=== PATIENT | female | born 1985 | race Two or more races ===

== ENCOUNTER 2017-04-09 12:51 | Emergency (ER) | payer SELFPAY ==
[~2017-04-09] VITALS: Ht 160 cm; Wt 76.2 kg
[~2017-04-09 12:51] MED LIST: ACET-704 PO; FEXO1TAB31 PO; FLUT1DIS3 IH; IBUP-1060 PO; PNV1TABL25 PO; PROAIR HFA8.5 GM IH
[2017-04-09] MEDS ORDERED: IPRATRPIUM/ALBUTEROL 0.5/2.5MG 3 ML NEBU. NEB ONE (13:15)
[2017-04-09] MEDS ORDERED: predniSONE 10 MG TABLET PO ONE (13:15)
[2017-04-09] MEDS ORDERED: ALBUTEROL SULFATE 2.5 MG/3 ML NEBU. INH ONE (13:15)
[2017-04-09] MEDS ORDERED: IV NORMAL SALINE 1000ML BAG 1,000 ML IV ONE ×2 (14:15→16:45)
[2017-04-09] MEDS ORDERED: ALBUTEROL SULFATE 2.5 MG/3 ML NEBU. CONT NEB ONE (14:30)
--- NOTE | 2017-04-09 14:41 | RAD ---
Exam performed: 2 views of the chest. Indication: Shortness of breath Date of Service:04/09/2017 4:03 PM . Comparison : Delay chest from 07/31/11. Findings: PA and lateral radiographs of the chest reveal a normal cardiomediastinal contour. The lungs are clear. No pleural fluid is seen. The visualized osseous structures are unremarkable. Impression: Radiographically normal chest.
[2017-04-09 14:42] LABS: BASO # 0.1 x10^3/uL (0.0-0.2); BASO % 1 % (0-3); EOS % 1 % (0-3); HEMATOCRIT 46.4 % (36.0-47.0); HEMOGLOBIN 15.7 g/dL (12.0-15.5); LYMPH # 1.6 x10^3/uL (1.0-4.8); LYMPH % 9 % (24-48); MEAN CORPUSCULAR HEMOGLOBIN 28 pg (25-35); MEAN CORPUSCULAR HGB CONC 34 g/dL (31-37); MEAN CORPUSCULAR VOLUME 83 fL (79-100); MONO % 5 % (0-9); NEUT % 85 % (31-73); PLATELET COUNT 330 x10^3/uL (140-400); RED BLOOD COUNT 5.62 x10^6/uL (3.50-5.40); RED CELL DISTRIBUTION WIDTH 13.1 % (11.5-14.5); WHITE BLOOD COUNT 17.6 x10^3/uL (4.0-11.0)
[2017-04-09 15:01] LABS: CALCIUM 8.5 mg/dL (8.5-10.1); CREATININE 0.8 mg/dL (0.6-1.0); GFR 82.1; POTASSIUM 3.5 mmol/L (3.5-5.1)
[2017-04-09 15:07] LABS: ALBUMIN 3.6 g/dL (3.4-5.0); ALBUMIN/GLOBULIN RATIO 0.9 (1.0-1.7); TOTAL BILIRUBIN 0.2 mg/dL (0.2-1.0); TOTAL PROTEIN 7.7 g/dL (6.4-8.2)
--- NOTE | 2017-04-09 15:26 | EKG ---
[facility] [address] [place] [address] Test Date: 2017-04-09 Test Time: 14:39:08 Pat Name: MADALYN WEINBERG Department: Room: Gender: F Credit Assistant: : 1985 Requested By: RENATE SOL Order Number: [id number] Reading MD: Simin Orlando Measurements Intervals [place] Rate: 122 P: -90 MN: 98 QRS: 54 QRSD: 92 T: 31 QT: 320 QTc: 457 Interpretive Statements SINUS TACHYCARDIA OTHERWISE NORMAL ECG Electronically Signed On 04-09-2017 19:09:50 CDT by Simin Orlando
[2017-04-09 16:26] LABS: % BASOS 1 % (0-3); % EOS 2 % (0-5)
[2017-04-09 16:28] LABS: PLT ESTIMATE ADEQUATE (ADEQUATE); TOXIC GRANULATION SLIGHT
[2017-04-09] MEDS ORDERED: PRED50TA PO (17:38)
--- NOTE | 2017-04-09 17:38 | PHYS DOC ---
Past Medical History Past Medical History: Asthma Past Surgical History: Appendectomy Alcohol Use: None Drug Use: None Adult General Chief Complaint Chief Complaint: SHORTNESS OF BREATH HPI HPI Patient is a 32 year old female who presents with shortness of breath. The patient reports asthma exacerbation since yesterday with increased dry cough & wheezing typical of her usual asthma exacerbation. She denies fevers/chills, chest pain, lower extremity pain/swelling. She has been using home inhalers without relief of symptoms. She has history of asthma, no previous hospital admissions. Denies any other known past medical history. Nonsmoker. Review of Systems Review of Systems Constitutional: Denies fever or chills Eyes: Denies change in visual acuity HENT: Denies nasal congestion or sore throat Respiratory: Reports cough and shortness of breath Cardiovascular: Denies chest pain or edema GI: Denies abdominal pain, nausea, vomiting Musculoskeletal: Denies back pain or joint pain Integument: Denies rash or skin lesions Neurologic: Denies headache, focal weakness or sensory changes Current Medications Current Medications Current Medications Medications (Trade) Dose Ordered Sig/Harish Start Time Stop Time Status Last Admin Dose Admin Albuterol Sulfate (Ventolin Neb Soln) 10 mg 1X ONCE 04/09/17 14:30 04/09/17 14:31 DC 04/09/17 14:53 10 MG Albuterol/ Ipratropium (Duoneb) 3 ml 1X ONCE 04/09/17 13:15 04/09/17 13:16 DC 04/09/17 13:22 3 ML Prednisone (Prednisone) 50 mg 1X ONCE 04/09/17 13:15 04/09/17 13:16 DC 04/09/17 13:28 50 MG Sodium Chloride 1,000 ml @ 1,000 mls/hr 1X ONCE 04/09/17 16:45 04/09/17 17:44 DC 04/09/17 16:45 1,000 MLS/HR Allergies Allergies Allergies Coded Allergies Type Severity Reaction Last Updated Verified No Known Drug Allergies 05/05/14 No Physical Exam Physical Exam Constitutional: Well developed, well nourished, mild distress HENT: Normocephalic, atraumatic, bilateral external ears normal, oropharynx moist, no tonsillar swelling or exudate, nose normal. Eyes: conjunctiva normal, no discharge. Neck: supple, no stridor. Cardiovascular: Tachycardic, regular, no murmurs, no edema. Lungs & Thorax: Tight throughout, expiratory wheezing present, mild respiratory distress, no respiratory distress. Abdomen: soft, nontender, nondistended. Skin: Warm, dry, no erythema, no rash. Back: No tenderness. Extremities: No tenderness, no edema. No calf tenderness or swelling Neurologic: Alert and oriented X 3, no focal deficits noted. Psychologic: Affect normal, judgement normal, mood normal. Current Patient Data Vital Signs Vital Signs Date Time Temp Pulse Resp B/P (MAP) Pulse Ox O2 Delivery O2 Flow Rate FiO2 04/09/17 17:39 115 42 115/63 (80) 99 04/09/17 13:09 Room Air 04/09/17 13:05 97.7 97.7 Lab Values Laboratory Tests Test 04/09/17 14:30 White Blood Count 17.6 x10^3/uL (4.0-11.0) H Red Blood Count 5.62 x10^6/uL (3.50-5.40) H Hemoglobin 15.7 g/dL (12.0-15.5) H Hematocrit 46.4 % (36.0-47.0) Mean Corpuscular Volume 83 fL (79-100) Mean Corpuscular Hemoglobin 28 pg (25-35) Mean Corpuscular Hemoglobin Concent 34 g/dL (31-37) Red Cell Distribution Width 13.1 % (11.5-14.5) Platelet Count 330 x10^3/uL (140-400) Neutrophils (%) (Auto) 85 % (31-73) H Lymphocytes (%) (Auto) 9 % (24-48) L Monocytes (%) (Auto) 5 % (0-9) Eosinophils (%) (Auto) 1 % (0-3) Basophils (%) (Auto) 1 % (0-3) Neutrophils # (Auto) 15.0 x10^3uL (1.8-7.7) H Lymphocytes # (Auto) 1.6 x10^3/uL (1.0-4.8) Monocytes # (Auto) 0.8 x10^3/uL (0.0-1.1) Eosinophils # (Auto) 0.2 x10^3/uL (0.0-0.7) Basophils # (Auto) 0.1 x10^3/uL (0.0-0.2) Segmented Neutrophils % 68 % (35-66) H Band Neutrophils % 21 % (0-9) H Lymphocytes % 7 % (24-48) L Monocytes % 1 % (0-10) Eosinophils % 2 % (0-5) Basophils % 1 % (0-3) Toxic Granulation Slight Platelet Estimate Adequate (ADEQUATE) Sodium Level 139 mmol/L (136-145) Potassium Level 3.5 mmol/L (3.5-5.1) Chloride Level 106 mmol/L (98-107) Carbon Dioxide Level 26 mmol/L (21-32) Anion Gap 7 (6-14) Blood Urea Nitrogen 9 mg/dL (7-20) Creatinine 0.8 mg/dL (0.6-1.0) Estimated GFR (Cockcroft-Gault) 82.1 BUN/Creatinine Ratio 11 (6-20) Glucose Level 109 mg/dL (70-99) H Calcium Level 8.5 mg/dL (8.5-10.1) Total Bilirubin 0.2 mg/dL (0.2-1.0) Aspartate Amino Transferase (AST) 17 U/L (15-37) Alanine Aminotransferase (ALT) 30 U/L (14-59) Alkaline Phosphatase 95 U/L (46-116) Total Protein 7.7 g/dL (6.4-8.2) Albumin 3.6 g/dL (3.4-5.0) Albumin/Globulin Ratio 0.9 (1.0-1.7) L Laboratory Tests 04/09/17 14:30 Laboratory Tests 04/09/17 14:30 EKG EKG interpreted by me: sinus tachycardia rate 122, no acute St/T wave changes, normal intervals, no ectopy.[] Radiology/Procedures Radiology/Procedures PROCEDURE: CHEST PA & LATERAL Exam performed: 2 views of the chest. Indication: Shortness of breath Date of Service:04/09/2017 4:03 PM . Comparison : Delay chest from 07/31/11. Findings: PA and lateral radiographs of the chest reveal a normal cardiomediastinal contour. The lungs are clear. No pleural fluid is seen. The visualized osseous structures are unremarkable. Impression: Radiographically normal chest. DICTATED and SIGNED BY: KRYSTYNA CHRISTINA MD DATE: 04/09/17 1437 [] Course & Med Decision Making Course & Med Decision Making Pertinent Labs and Imaging studies reviewed. (See chart for details) The patient presents with asthma exacerbation. Administered prednisone and breathing treatments. Her breathing significantly improved but she had some persistent wheezing. She was also persistently tachycardic into the 130s. Gave IV fluids, obtained labs and chest x-ray. Administered hour-long albuterol treatment. She felt much improved after completing continuous albuterol and requested discharge home. Breath sounds were clear and she was resting comfortably. However she was still tachycardic into the 130s. Likely iatrogenic from administration of large amount of albuterol, but persistently tachycardic with prolonged period of observation. Very low suspicion for PE as symptoms improved with treatment of asthma and no significant risk factors. Provided second liter of IV fluids. Heart rate improving to 110 and she had no persistent symptoms. She was not febrile, no evidence of pneumonia on chest x- ray. The patient was comfortable with discharge home. Recommend rest, hydration , Tylenol or ibuprofen for pain or fever, gave prednisone prescription, continue albuterol. Follow-up with primary care physician in 2-3 days. Return to the emergency department for severe shortness of breath or chest pain, or any otherwise worsening condition. Discharged home in stable and improved condition. [] Dragon Disclaimer Dragon Disclaimer This electronic medical record was generated, in whole or in part, using a voice recognition dictation system. Departure Departure Impression: Primary Impression: Asthma exacerbation Additional Impression: Tachycardia Disposition: 01 HOME, SELF-CARE Condition: STABLE Referrals: UNKNOWN PCP NAME (PCP) Leo CALVO MD Patient Instructions: Asthma, Adult, [id number] Additional Instructions: You were seen in the emergency department today for asthma exacerbation. You improved with breathing treatments. Your x-ray did not show pneumonia. Please rest, drink fluids, take tylenol or ibuprofen for pain or fever, use prednisone as prescribed, continue using inhalers. Come back for severe shortness of breath or chest pain, or any otherwise worsening condition. Scripts Prednisone (PREDNISONE) 50 Mg Tablet 1 TAB PO DAILY, #5 TAB Prov: RENATE SOL MD 04/09/17 Problem Qualifiers RENATE SOL MD Apr 09, 2017 17:38
[2017-04-09 17:39] VITALS: BP 115/63
== END 2017-04-09 17:49 | disposition home or self-care (01) ==
LOC: ER 12:51
DX: J45.901 Unspecified asthma with (acute) exacerbation (principal); R00.0 Tachycardia, unspecified
CPT/HCPCS: 36415; 71020; 80053; 85007; 85025; 93005; 94644; 96360; 96361; 99285; J7030; J7512; J7613; J7620; 94640

== ENCOUNTER 2017-11-25 23:37 | Emergency (ER) | payer SELFPAY ==
[2017-11-26 00:03] LABS: BILIRUBIN,URINE NEGATIVE (NEG); CLARITY,URINE CLEAR; GLUCOSE,URINE NEGATIVE (NEG); NITRITE,URINE NEGATIVE (NEG); PROTEIN,URINE NEGATIVE (NEG-TRACE); UROBILINOGEN,URINE 0.2 mg/dL (0.2 mg/dL)
[2017-11-26 00:04] LABS: URINE HCG POC HCG NEGATIVE (Negative)
[2017-11-26] MEDS: IV NORMAL SALINE 1000ML BAG 1,000 ML IV (00:15)
[2017-11-26 00:20] LABS: COLOR,URINE COLORLESS
[2017-11-26 00:22] LABS: RBC,URINE OCC /HPF (0-2)
[2017-11-26 00:23] LABS: BACTERIA,URINE FEW /HPF (0-FEW); SQUAMOUS EPITHELIAL CELL,UR FEW /LPF
[2017-11-26 00:50] LABS: ADD MAN DIFF? NO
[2017-11-26 00:53] LABS: BASO # 0.2 x10^3/uL (0.0-0.2); BASO % 1 % (0-3); EOS # 0.5 x10^3/uL (0.0-0.7); EOS % 3 % (0-3); HEMATOCRIT 45.9 % (36.0-47.0); HEMOGLOBIN 15.5 g/dL (12.0-15.5); LYMPH % 22 % (24-48); MEAN CORPUSCULAR HEMOGLOBIN 29 pg (25-35); MEAN CORPUSCULAR HGB CONC 34 g/dL (31-37); MEAN CORPUSCULAR VOLUME 84 fL (79-100); MONO # 0.7 x10^3/uL (0.0-1.1); MONO % 5 % (0-9); NEUT # 9.7 x10^3uL (1.8-7.7); NEUT % 69 % (31-73); PLATELET COUNT 369 x10^3/uL (140-400); RED BLOOD COUNT 5.45 x10^6/uL (3.50-5.40); RED CELL DISTRIBUTION WIDTH 13.1 % (11.5-14.5); WHITE BLOOD COUNT 14.1 x10^3/uL (4.0-11.0)
[2017-11-26 01:04] LABS: ANION GAP 11 (6-14); BLOOD UREA NITROGEN 12 mg/dL (7-20); BUN/CREATININE RATIO 13 (6-20); CALCIUM 8.8 mg/dL (8.5-10.1); CARBON DIOXIDE 22 mmol/L (21-32); CHLORIDE 109 mmol/L (98-107); CREATININE 0.9 mg/dL (0.6-1.0); GFR 71.7; GLUCOSE 99 mg/dL (70-99); POTASSIUM 3.7 mmol/L (3.5-5.1); SODIUM 142 mmol/L (136-145)
[2017-11-26 01:10] LABS: ALBUMIN 3.5 g/dL (3.4-5.0); ALBUMIN/GLOBULIN RATIO 0.9 (1.0-1.7); ALK PHOS 107 U/L (46-116); ALT (SGPT) 25 U/L (14-59); AST (SGOT) 14 U/L (15-37); CREATINE KINASE 67 U/L (26-192); TOTAL BILIRUBIN 0.2 mg/dL (0.2-1.0); TOTAL PROTEIN 7.6 g/dL (6.4-8.2)
[2017-11-26 01:11] LABS: D-DIMER < 0.27 ug/mlFEU (0.00-0.50)
== END 2017-11-26 02:46 | disposition home or self-care (01) ==
LOC: ER 23:37
DX: R07.9 Chest pain, unspecified (principal); J45.909 Unspecified asthma, uncomplicated; R11.0 Nausea; Z79.899 Other long term (current) drug therapy; Z90.49 Acquired absence of other specified parts of digestive tract
CPT/HCPCS: 36415; 71045; 80053; 81001; 81025; 82550; 85025; 85379; 87086; 93005; 99285; J7030

== ENCOUNTER 2018-09-05 22:29 | Emergency (ER) | payer SELFPAY ==
[~2018-09-05] VITALS: Ht 160 cm; Wt 77.1 kg
[2018-09-05 22:29] VITALS: BP 135/76
[~2018-09-05 22:29] MED LIST changes: +ALBU2.5V8 IH; +PRED50TA PO; -PROAIR HFA8.5 GM IH
--- NOTE | 2018-09-05 22:59 | PHYS DOC ---
Past Medical History Past Medical History: Asthma (ASIA LEAVITT) Past Surgical History: Appendectomy (ASIA LEAVITT) Alcohol Use: None Drug Use: None (ASIA LEAVITT) Adult General Chief Complaint Chief Complaint: ASTHMA HPI HPI Patient is a 33 -year-old female with a history of asthma presents to the ED complaining of cough around 1:00 today. States she had to use her inhaler 4 times in the last couple of hours. Associated symptoms include sore throat. Denies chest pain, weakness, rash, nausea/vomiting, palpitations, back pain, neck pain, vision changes, fever or dizziness. (ASIA LEAVITT) Review of Systems Review of Systems Constitutional: Denies fever or chills [] Eyes: Denies change in visual acuity, redness, or eye pain [] HENT: Complains of sore throat. Denies nasal congestion. [] Respiratory: Complains of cough and shortness of breath. Cardiovascular: No additional information not addressed in HPI [] GI: Denies abdominal pain, nausea, vomiting, bloody stools or diarrhea [] : Denies dysuria or hematuria [] Musculoskeletal: Denies back pain or joint pain [] Integument: Denies rash or skin lesions [] Neurologic: Denies headache, focal weakness or sensory changes [] All other systems were reviewed and found to be within normal limits, except as documented in this note. (ASIA LEAVITT) Current Medications Current Medications Current Medications Medications (Trade) Dose Ordered Sig/Harish Start Time Stop Time Status Last Admin Dose Admin Albuterol/ Ipratropium (Duoneb) 3 ml 1X ONCE 09/05/18 23:00 09/05/18 23:01 DC 09/05/18 23:50 3 ML Methylprednisolone Sodium Succinate (SOLU-Medrol 125MG VIAL) 125 mg 1X ONCE 09/05/18 23:00 09/05/18 23:01 DC 09/05/18 23:46 125 MG (REJI KAPOOR MD) Allergies Allergies Allergies Coded Allergies Type Severity Reaction Last Updated Verified No Known Drug Allergies 05/05/14 No (REJI KAPOOR MD) Physical Exam Physical Exam Constitutional: Well developed, well nourished, no acute distress, non-toxic appearance. [] HENT: Normocephalic, atraumatic, bilateral external ears normal, oropharynx moist, no oral exudates, nose normal. [] Eyes: PERRLA, EOMI, conjunctiva normal, no discharge. [] Neck: Normal range of motion, no tenderness, supple, no stridor. [] Cardiovascular:Tachycardic, Normal rhythm, no murmur [] Lungs & Thorax: Mild wheezing bilaterally. Abdomen: Bowel sounds normal, soft, no tenderness, no masses, no pulsatile masses. [] Skin: Warm, dry, no erythema, no rash. [] Back: No tenderness, no CVA tenderness. [] Extremities: No tenderness, no cyanosis, no clubbing, ROM intact, no edema. [] Neurologic: Alert and oriented X 3, normal motor function, normal sensory function, no focal deficits noted. [] Psychologic: Affect normal, judgement normal, mood normal. [] (ASIA LEAVITT) Current Patient Data Vital Signs Vital Signs Date Time Temp Pulse Resp B/P (MAP) Pulse Ox O2 Delivery O2 Flow Rate FiO2 09/05/18 23:50 96 09/05/18 22:29 97.9 120 20 135/76 (95) Room Air 97.9 (REJI KAPOOR MD) EKG EKG [] (ASIA LEAVITT) Radiology/Procedures Radiology/Procedures [] (ASIA LEAVITT) Course & Med Decision Making Course & Med Decision Making Pertinent Labs and Imaging studies reviewed. (See chart for details) []Patient improved after breathing treatment. On re-examination, patient is not tachycardic, not tachypneic and O2 saturation is 98%. Patient states she is feeling much better. Will treat with short course of prednisone outpatient. Patient has an inhaler at home. Discussed follow-up with PCP this week. Provided contact information/education. Discussed reasons to return to the ED. Patient understands and agrees with plan. Family at bedside. (ASIA LEAVITT) Course & Med Decision Making Staff Physician Addendum: I was working in the ER during the course of this patient's visit. I was available for consultation as needed, but I was not directly involved in the care of this patient. (REJI KAPOOR MD) Dragon Disclaimer Dragon Disclaimer This electronic medical record was generated, in whole or in part, using a voice recognition dictation system. (ASIA LEAVITT) Departure Departure Impression: Primary Impression: Asthma exacerbation Disposition: 01 HOME, SELF-CARE Condition: IMPROVED Referrals: SANDEEP ONEIL (PCP) Patient Instructions: Asthma, Adult Scripts Prednisone (PREDNISONE) 20 Mg Tablet 2 TAB PO DAILY for 5 Days, #10 TAB Prov: ASIA LEAVITT 09/06/18 ASIA LEAVITT Sep 05, 2018 22:59 REJI KAPOOR MD Sep 07, 2018 05:31
[2018-09-05] MEDS ORDERED: IPRATRPIUM/ALBUTEROL 0.5/2.5MG 3 ML NEBU. NEB ONE ×2 (23:00)
[2018-09-05] MEDS ORDERED: methylPREDNISolone SOD SUCC PF 125 MG/2 ML VIAL. IM ONE (23:00)
[2018-09-06] MEDS ORDERED: PRED20TA PO (00:07)
[2018-09-07] MEDS ORDERED: D-ME118S2 PO (07:55)
[2018-09-07] MEDS ORDERED: ATROVENT HFA12.9 GM IH (07:55)
== END 2018-09-06 00:22 | disposition home or self-care (01) ==
LOC: ER 22:29
DX: J45.901 Unspecified asthma with (acute) exacerbation (principal); R00.0 Tachycardia, unspecified; Z90.89 Acquired absence of other organs
CPT/HCPCS: 94640; 96372; 99283; J2930; J7620

== ENCOUNTER 2018-09-07 06:52 | Emergency (ER) | payer SELFPAY ==
[~2018-09-07] VITALS: Ht 160 cm; Wt 77.1 kg
[~2018-09-07 06:52] MED LIST changes: +PRED20TA PO
[2018-09-07 07:09] VITALS: BP 115/77
[2018-09-07] MEDS ORDERED: IPRATRPIUM/ALBUTEROL 0.5/2.5MG 3 ML NEBU. NEB ONE (07:15)
--- NOTE | 2018-09-07 07:17 | PHYS DOC ---
Past Medical History Past Medical History: Asthma Past Surgical History: Appendectomy Alcohol Use: None Drug Use: None Adult General Chief Complaint Chief Complaint: ASTHMA HPI HPI Patient is a 33 year old female who presents with cough and congestion. She reports difficulty breathing. She was seen and diagnosed with an asthma exacerbation 2 days ago. Reports that the inhalers not working. Increased with coughing. She has not seen her primary care physician for follow-up at this time. Denies any fever. Denies any leg swelling. Reports minimal improvement with her metered-dose inhaler.[] Review of Systems Review of Systems Constitutional: Denies fever or chills [] Eyes: Denies change in visual acuity, redness, or eye pain [] HENT: Denies sore throat, see history of present illness [] Respiratory: See history of present illness[] Cardiovascular: No chest pain or palpitations[] GI: Denies abdominal pain, nausea, vomiting, bloody stools or diarrhea [] : Denies dysuria or hematuria [] Musculoskeletal: Denies back pain or joint pain [] Integument: Denies rash or skin lesions [] Neurologic: Denies headache, focal weakness or sensory changes [] Endocrine: Denies polyuria or polydipsia [] All other systems were reviewed and found to be within normal limits, except as documented in this note. Current Medications Current Medications Current Medications Medications (Trade) Dose Ordered Sig/Harish Start Time Stop Time Status Last Admin Dose Admin Albuterol/ Ipratropium (Duoneb) 3 ml 1X ONCE 09/07/18 07:15 09/07/18 07:16 DC 09/07/18 07:29 3 ML Allergies Allergies Allergies Coded Allergies Type Severity Reaction Last Updated Verified No Known Drug Allergies 05/05/14 No Physical Exam Physical Exam Constitutional: Well developed, well nourished, no acute distress, non-toxic appearance. [] HENT: Normocephalic, atraumatic, bilateral external ears normal, oropharynx moist, no oral exudates, nose with clear rhinorrhea, posterior oral pharyngeal streaking. [] Eyes: PERRLA, EOMI, conjunctiva normal, no discharge. [] Neck: Normal range of motion, no tenderness, supple, no stridor. [] Cardiovascular:Heart rate regular rhythm, no murmur [] Lungs & Thorax: Scattered expiratory wheezes[] Abdomen: Bowel sounds normal, soft, no tenderness, no masses, no pulsatile masses. [] Skin: Warm, dry, no erythema, no rash. [] Back: No tenderness, no CVA tenderness. [] Extremities: No tenderness, no cyanosis, no clubbing, ROM intact, no edema. [] Neurologic: Alert and oriented X 3, normal motor function, normal sensory function, no focal deficits noted. [] Psychologic: Affect normal, judgement normal, mood normal. [] Current Patient Data Vital Signs Vital Signs Date Time Temp Pulse Resp B/P (MAP) Pulse Ox O2 Delivery O2 Flow Rate FiO2 09/07/18 07:31 Room Air 09/07/18 07:09 97.9 117 24 115/77 (90) 96 97.9 EKG EKG [] Radiology/Procedures Radiology/Procedures [] Course & Med Decision Making Course & Med Decision Making Pertinent Labs and Imaging studies reviewed. (See chart for details) ED course and medical decision making: Patient appears to have an upper respiratory infection triggering asthma exacerbation. Her oxygen saturation was 96% at the start, prior to any breathing treatments. She received a DuoNeb which cleared her lung sounds and her oxygen saturation was 98% after the breathing treatment. Will add ipratropium to her regimen along with cough and congestion medicine.[] Dragon Disclaimer Dragon Disclaimer This electronic medical record was generated, in whole or in part, using a voice recognition dictation system. Departure Departure Impression: Primary Impression: Asthma exacerbation Additional Impression: Upper respiratory infection Disposition: 01 HOME, SELF-CARE Condition: IMPROVED Referrals: SANDEEP ONEIL (PCP) Follow-up in 2 days Patient Instructions: Asthma Attacks, Prevention, Asthma, Adult, Upper Respiratory Infection, Adult Additional Instructions: Drink plenty of fluids. Follow-up with your regular doctor in 2 days. Return to the ER if worsening difficulty breathing or any other concerns. Scripts D-Methorphan Hb/Prometh Hcl (PROMETHAZINE-DM SYRUP) 118 Ml Syrup 5 ML PO PRN Q4HRS, #120 ML Prov: BARBRA GUZMAN DO 09/07/18 Ipratropium [place] (ATROVENT HFA) 12.9 Gm Hfa.aer.ad 12.9 GM IH Q6HRS, #1 INHALER Prov: BARBRA GUZMAN DO 09/07/18 Problem Qualifiers Primary Impression: Asthma exacerbation Asthma severity: unspecified severity Asthma persistence: intermittent Qualified Codes: J45.21 - Mild intermittent asthma with (acute) exacerbation Additional Impression: Upper respiratory infection URI type: unspecified URI Qualified Codes: J06.9 - Acute upper respiratory infection, unspecified BARBRA GUZMAN DO Sep 07, 2018 07:17
[2018-09-07] MEDS ORDERED: ATROVENT HFA12.9 GM IH (07:55)
[2018-09-07] MEDS ORDERED: D-ME118S2 PO (07:55)
== END 2018-09-07 08:07 | disposition home or self-care (01) ==
LOC: ER 06:52
DX: J45.21 Mild intermittent asthma with (acute) exacerbation (principal); Z90.89 Acquired absence of other organs
CPT/HCPCS: 94640; 99283; J7620

== ENCOUNTER 2019-04-03 08:57 | Emergency (ER) | payer SELFPAY ==
[~2019-04-03] VITALS: Ht 160 cm; Wt 74.8 kg
[~2019-04-03 08:57] MED LIST changes: +ATROVENT HFA12.9 GM IH; +AZIT250T6 PO; +BENZ100C PO; +CETI10TA22 PO; +METH4TAB2 PO; +PROM118S9 PO; +PROVENTIL HFA6.7 G2 INH
[2019-04-03 09:03] VITALS: BP 140/79
[2019-04-03] MEDS ORDERED: methylPREDNISolone SOD SUCC PF 125 MG/2 ML VIAL. IM ONE (09:30)
[2019-04-03] MEDS ORDERED: IPRATRPIUM/ALBUTEROL 0.5/2.5MG 3 ML NEBU. NEB ONE (09:30)
--- NOTE | 2019-04-03 09:30 | PHYS DOC ---
Past Medical History Past Medical History: Asthma Past Surgical History: Appendectomy Alcohol Use: None Drug Use: None Adult General Chief Complaint Chief Complaint: ASTHMA HPI HPI Patient is a 34 year old female that presents with cough and shortness of breath is ongoing since last night around 9:00 PM. Patient states she's having 3 out of 10 pain when she takes a deep breath. She states that she has a history of asthma has been using an inhaler at home that is not working. Review of Systems Review of Systems Constitutional: Denies fever or chills [] Eyes: Denies change in visual acuity, redness, or eye pain [] HENT: Reports nasal congestion or sore throat [] Respiratory: Reports cough or shortness of breath [] Cardiovascular: No additional information not addressed in HPI [] GI: Denies abdominal pain, nausea, vomiting, bloody stools or diarrhea [] : Denies dysuria or hematuria [] Musculoskeletal: Denies back pain or joint pain [] Integument: Denies rash or skin lesions [] Neurologic: Denies headache, focal weakness or sensory changes [] Endocrine: Denies polyuria or polydipsia [] Complete systems were reviewed and found to be within normal limits, except as documented in this note. Current Medications Current Medications Current Medications Medications (Trade) Dose Ordered Sig/Harish Start Time Stop Time Status Last Admin Dose Admin Albuterol Sulfate (Ventolin Neb Soln) 10 mg 1X STAT 04/03/19 10:15 04/03/19 10:17 DC 04/03/19 10:27 10 MG Albuterol/ Ipratropium (Duoneb) 3 ml 1X ONCE 04/03/19 09:30 04/03/19 09:31 DC 04/03/19 09:34 3 ML Methylprednisolone Sodium Succinate (SOLU-Medrol 125MG VIAL) 125 mg 1X ONCE 04/03/19 09:30 04/03/19 09:31 DC 04/03/19 09:39 125 MG Allergies Allergies Allergies Coded Allergies Type Severity Reaction Last Updated Verified No Known Drug Allergies 05/05/14 No Physical Exam Physical Exam Constitutional: Well developed, well nourished, no acute distress, non-toxic appearance. [] HENT: Normocephalic, atraumatic, bilateral external ears normal, oropharynx moist, no oral exudates, nose normal. [] Eyes: PERRLA, EOMI, conjunctiva normal, no discharge. [] Neck: Normal range of motion, no tenderness, supple, no stridor. [] Cardiovascular:Heart rate regular rhythm, no murmur [] Lungs & Thorax: Bilateral breath sounds have wheezing diffusely. Abdomen: Bowel sounds normal, soft, no tenderness, no masses, no pulsatile masses. [] Skin: Warm, dry, no erythema, no rash. [] Back: No tenderness, no CVA tenderness. [] Extremities: No tenderness, no cyanosis, no clubbing, ROM intact, no edema. [] Neurologic: Alert and oriented X 3, normal motor function, normal sensory function, no focal deficits noted. [] Psychologic: Affect normal, judgement normal, mood normal. [] Current Patient Data Vital Signs Vital Signs Date Time Temp Pulse Resp B/P (MAP) Pulse Ox O2 Delivery O2 Flow Rate FiO2 04/03/19 10:33 Room Air 04/03/19 09:03 97.8 130 30 140/79 (99) 93 97.8 EKG EKG [] Radiology/Procedures Radiology/Procedures [] Course & Med Decision Making Course & Med Decision Making Pertinent Labs and Imaging studies reviewed. (See chart for details) Patient appears to be having an asthma attack, will give steroids and breathing treatment. After initial duoneb, patient is still feeling better but is still wheezing. Will order hour long continuous nebulizer. After hour long patient has improved. Will d/c home. Dragon Disclaimer Dragon Disclaimer This electronic medical record was generated, in whole or in part, using a voice recognition dictation system. Departure Departure Impression: Primary Impression: Asthma exacerbation Disposition: HOME, SELF-CARE Condition: STABLE Referrals: NO PCP (PCP) Patient Instructions: Asthma Attacks, Prevention, Asthma, Adult Additional Instructions: Thank you for visiting [facility]. We appreciate you trusting us with your care. If any additional problems come up don't hesitate to return to visit us. Please follow up with your primary care provider so they can plan additional care if needed and know about the problem that you had. If symptoms worsen come back to the Emergency Department. Any concerning symptoms that start such as chest pain, shortness of air, weakness or numbness on one side of the body, running high fevers or any other concerning symptoms return to the ER. Please follow up with primary care doctor regarding your asthma. Scripts Prednisone (PREDNISONE) 20 Mg Tablet 1 TAB PO BID for 5 Days, #10 TAB Prov: BRENDA COATS APRN 04/03/19 Problem Qualifiers Primary Impression: Asthma exacerbation Asthma severity: moderate Asthma persistence: unspecified Qualified Codes: J45.901 - Unspecified asthma with (acute) exacerbation BRENDA COATS APRN Apr 03, 2019 09:30
[2019-04-03] MEDS ORDERED: ALBUTEROL SULFATE 2.5 MG/3 ML NEBU. CONT NEB STA (10:15)
[2019-04-03] MEDS ORDERED: PRED20TA PO (11:30)
== END 2019-04-03 11:42 | disposition home or self-care (01) ==
LOC: ER 08:57
DX: J45.901 Unspecified asthma with (acute) exacerbation (principal)
CPT/HCPCS: 94640; 94644; 99285; J2930; J7613; J7620

== ENCOUNTER 2019-04-18 18:50 | Observation (INO) | payer SELFPAY ==
[~2019-04-18] VITALS: Ht 160 cm; Wt 73.0 kg
[2019-04-18] MEDS ORDERED: TERBUTALINE 1 MG/ML VIAL. SQ ONE (19:00)
[2019-04-18] MEDS ORDERED: MAGNESIUM SULFATE 2GM 50 ML IV ONE (19:00)
[2019-04-18] MEDS ORDERED: IPRATRPIUM/ALBUTEROL 0.5/2.5MG 3 ML NEBU. NEB ONE ×3 (19:15→19:30)
[2019-04-18] MEDS ORDERED: methylPREDNISolone SOD SUCC PF 125 MG/2 ML VIAL. IV ONE (19:15)
--- NOTE | 2019-04-18 19:18 | PHYS DOC ---
Past Medical History Past Medical History: Asthma Past Surgical History: Appendectomy Alcohol Use: None Drug Use: None Adult General Chief Complaint Chief Complaint: ASTHMA HPI HPI 34-year-old female presents to the emergency department with complaints of shortness of breath. Patient has underlying history of asthma states approximate 30 minutes prior to arrival she developed shortness of breath. She attended use inhalers at home however unsuccessful. She presented to the ER with respiratory rate in the 40s, speaking in 2 word sentences. She is coughing on examination, cachectic, use of accessory muscles.: Respiratory distress. Saturations 84% on initial arrival. Son is at bedside with patient providing history. Review of Systems Review of Systems Review of systems is limited secondary to patient's current condition, patient with evidence of 2 word sentences, clearly short of breath and coughing. All other systems were reviewed and found to be within normal limits, except as documented in this note. Current Medications Current Medications Current Medications Medications (Trade) Dose Ordered Sig/Harish Start Time Stop Time Status Last Admin Dose Admin Albuterol/ Ipratropium (Duoneb) 3 ml 1X ONCE 04/18/19 19:30 04/18/19 19:31 DC 04/18/19 19:26 3 ML Magnesium Sulfate 50 ml @ 25 mls/hr 1X ONCE 04/18/19 19:00 04/18/19 20:59 DC 04/18/19 19:01 25 MLS/HR Methylprednisolone Sodium Succinate (SOLU-Medrol 125MG VIAL) 125 mg 1X ONCE 04/18/19 19:15 04/18/19 19:16 DC 04/18/19 19:02 125 MG Sodium Chloride 1,000 ml @ 1,000 mls/hr 1X ONCE 04/18/19 19:45 04/18/19 20:44 DC 04/18/19 19:40 1,000 MLS/HR Terbutaline Sulfate (Brethine) 0.25 mg 1X ONCE 04/18/19 19:00 04/18/19 19:18 DC Allergies Allergies Allergies Coded Allergies Type Severity Reaction Last Updated Verified No Known Drug Allergies 05/05/14 No Physical Exam Physical Exam Constitutional: Well developed, well nourished, no acute distress, non-toxic appearance. [] HENT: Normocephalic, atraumatic, bilateral external ears normal, oropharynx moist, no oral exudates, nose normal. [] Eyes: PERRLA, EOMI, conjunctiva normal, no discharge. [] Neck: Normal range of motion, no tenderness, supple, no stridor. [] Cardiovascular:Heart rate regular rhythm, no murmur [] Lungs & Thorax: Bilateral breath sounds clear to auscultation [] Abdomen: Bowel sounds normal, soft, no tenderness, no masses, no pulsatile masses. [] Skin: Warm, dry, no erythema, no rash. [] Back: No tenderness, no CVA tenderness. [] Extremities: No tenderness, no cyanosis, no clubbing, ROM intact, no edema. [] Neurologic: Alert and oriented X 3, normal motor function, normal sensory function, no focal deficits noted. [] Psychologic: Affect normal, judgement normal, mood normal. [] Current Patient Data Vital Signs Vital Signs Date Time Temp Pulse Resp B/P (MAP) Pulse Ox O2 Delivery O2 Flow Rate FiO2 04/18/19 19:00 88 3.0 04/18/19 18:50 97.4 133 44 171/105 (127) Room Air 97.4 Lab Values Laboratory Tests Test 04/18/19 18:55 White Blood Count 19.0 x10^3/uL (4.0-11.0) H Red Blood Count 5.63 x10^6/uL (3.50-5.40) H Hemoglobin 15.1 g/dL (12.0-15.5) Hematocrit 45.7 % (36.0-47.0) Mean Corpuscular Volume 81 fL (79-100) Mean Corpuscular Hemoglobin 27 pg (25-35) Mean Corpuscular Hemoglobin Concent 33 g/dL (31-37) Red Cell Distribution Width 14.6 % (11.5-14.5) H Platelet Count 458 x10^3/uL (140-400) H Neutrophils (%) (Auto) 70 % (31-73) Lymphocytes (%) (Auto) 22 % (24-48) L Monocytes (%) (Auto) 5 % (0-9) Eosinophils (%) (Auto) 3 % (0-3) Basophils (%) (Auto) 1 % (0-3) Neutrophils # (Auto) 13.2 x10^3/uL (1.8-7.7) H Lymphocytes # (Auto) 4.2 x10^3/uL (1.0-4.8) Monocytes # (Auto) 0.9 x10^3/uL (0.0-1.1) Eosinophils # (Auto) 0.5 x10^3/uL (0.0-0.7) Basophils # (Auto) 0.1 x10^3/uL (0.0-0.2) Segmented Neutrophils % 79 % (35-66) H Band Neutrophils % 2 % (0-9) Lymphocytes % 17 % (24-48) L Monocytes % 1 % (0-10) Eosinophils % 1 % (0-5) Platelet Estimate Adequate (ADEQUATE) D-Dimer (Leanna) 0.53 ug/mlFEU (0.00-0.50) H Sodium Level 140 mmol/L (136-145) Potassium Level 3.5 mmol/L (3.5-5.1) Chloride Level 104 mmol/L (98-107) Carbon Dioxide Level 24 mmol/L (21-32) Anion Gap 12 (6-14) Blood Urea Nitrogen 7 mg/dL (7-20) Creatinine 1.0 mg/dL (0.6-1.0) Estimated GFR (Cockcroft-Gault) 62.7 BUN/Creatinine Ratio 7 (6-20) Glucose Level 109 mg/dL (70-99) H Calcium Level 8.9 mg/dL (8.5-10.1) Total Bilirubin 0.3 mg/dL (0.2-1.0) Aspartate Amino Transferase (AST) 19 U/L (15-37) Alanine Aminotransferase (ALT) 23 U/L (14-59) Alkaline Phosphatase 113 U/L (46-116) Total Protein 6.9 g/dL (6.4-8.2) Albumin 3.2 g/dL (3.4-5.0) L Albumin/Globulin Ratio 0.9 (1.0-1.7) L Laboratory Tests 04/18/19 18:55 Laboratory Tests 04/18/19 18:55 EKG EKG EKG reviewed, urgent EKG given patient's rate. Heart rate 128, sinus tachycardia.[] Interpretation Time: Interpretation time 1900 Radiology/Procedures Radiology/Procedures [] Course & Med Decision Making Course & Med Decision Making Pertinent Labs and Imaging studies reviewed. (See chart for details) []34-year-old female presents to the emergency department with complaints of shortness of breath. Patient has underlying history of asthma states approximate 30 minutes prior to arrival she developed shortness of breath. She attended use inhalers at home however unsuccessful. She presented to the ER with respiratory rate in the 40s, speaking in 2 word sentences. She is coughing on examination, cachectic, use of accessory muscles.: Respiratory distress. Saturations 84% on initial arrival. Son is at bedside with patient providing history. Upon arrival patient with severe respiratory distress speaking in 2-3 word sent ences affect, saturations 85% on room air. Patient received 125 mg of Solu- Medrol, DuoNeb 1 hour, magnesium 2 g IV over 10 minutes. Saturations slowly improved currently she is 98% on 2 L nasal cannula. Heart rate had been up to 140s to 160s now currently 120. Laboratory values revealed white blood cell count 19, chest x-ray reveals no evidence of acute consolidation. D-dimer is mildly elevated 0.53, likely incidental finding however will be complete with CTA of chest. Given significants of patient's presentation upon arrival would recommend observation overnight and continued treatments as well as steroid therapy. Discussed with patient at bedside she agrees for admission. Discussed admit with Hospitalist Jose Manuel Disclaimer Jose Manuel Disclaimer This electronic medical record was generated, in whole or in part, using a voice recognition dictation system. Departure Departure Impression: Primary Impression: Asthma exacerbation Additional Impression: Hypoxia Disposition: 09 ADMITTED INPATIENT Admitting Physician: CHARLA Condition: IMPROVED Referrals: NO PCP (PCP) Critical Care Time Critical care time was 40 minutes exclusive of procedures. Problem Qualifiers REJI LIMA MD Apr 18, 2019 19:18
[2019-04-18 19:19] LABS: BASO # 0.1 x10^3/uL (0.0-0.2); BASO % 1 % (0-3); EOS # 0.5 x10^3/uL (0.0-0.7); EOS % 3 % (0-3); HEMATOCRIT 45.7 % (36.0-47.0); HEMOGLOBIN 15.1 g/dL (12.0-15.5); LYMPH # 4.2 x10^3/uL (1.0-4.8); LYMPH % 22 % (24-48); MEAN CORPUSCULAR HEMOGLOBIN 27 pg (25-35); MEAN CORPUSCULAR HGB CONC 33 g/dL (31-37); MEAN CORPUSCULAR VOLUME 81 fL (79-100); MONO # 0.9 x10^3/uL (0.0-1.1); MONO % 5 % (0-9); NEUT # 13.2 x10^3/uL (1.8-7.7); NEUT % 70 % (31-73); PLATELET COUNT 458 x10^3/uL (140-400); RED BLOOD COUNT 5.63 x10^6/uL (3.50-5.40); RED CELL DISTRIBUTION WIDTH 14.6 % (11.5-14.5)
[2019-04-18 19:33] LABS: CALCIUM 8.9 mg/dL (8.5-10.1); GFR 62.7; POTASSIUM 3.5 mmol/L (3.5-5.1)
[2019-04-18 19:39] LABS: ALBUMIN 3.2 g/dL (3.4-5.0); ALBUMIN/GLOBULIN RATIO 0.9 (1.0-1.7); TOTAL BILIRUBIN 0.3 mg/dL (0.2-1.0); TOTAL PROTEIN 6.9 g/dL (6.4-8.2)
[2019-04-18] MEDS ORDERED: IV NORMAL SALINE 1000ML BAG 1,000 ML IV ONE (19:45)
[2019-04-18 19:55] LABS: % BANDS 2 % (0-9); % EOS 1 % (0-5); % LYMPHS 17 % (24-48); % MONOS 1 % (0-10); % SEGS 79 % (35-66); PLT ESTIMATE ADEQUATE (ADEQUATE)
[2019-04-18] MEDS ORDERED: ONDANSETRON PF 4 MG/2 ML VIAL. IV PRN (21:15)
[2019-04-18] MEDS ORDERED: ACETAMINOPHEN 325 MG TABLET. PO PRN (21:15)
[2019-04-18] MEDS ORDERED: IOHEXOL 350 MG/ML 100 ML VIAL. IV ONE (22:00)
[2019-04-18] MEDS ORDERED: CONTRAST GIVEN. MC PRN (22:00)
[2019-04-18] MEDS ORDERED: FAMOTIDINE 20 MG/2 ML VIAL IVP ONE (22:45)
[2019-04-18] MEDS ORDERED: diphenhydrAMINE 50 MG/ML VIAL IVP ONE (22:45)
--- NOTE | 2019-04-18 22:57 | RAD ---
CTA Chest with contrast: Clinical History: Shortness of breath. Axial helical images of the chest were obtained after the administration of 100 cc of IV Omni 350 and timed appropriately for a pulmonary arterial study. Conventional axial reconstruction was performed in addition to coronal, sagittal and bilateral oblique MIP (maximum intensity projection). This study was ordered to detect possible pulmonary embolism. There are no filling defects to suggest pulmonary embolism. There is patchy opacity in the left upper lobe anterior medially. There is vague patchy groundglass opacities in the left lower lobe and in the lingula and there is groundglass opacities throughout the remaining lungs. There is a moderately enlarged lymph node in the left hilum. The thoracic aorta appears normal. Impression: 1. No evidence of pulmonary embolism. 2. Bilateral infiltrates and mild left hilar lymphadenopathy. This could be secondary to atypical pneumonia including TB. Recommend follow-up chest x-ray complete resolution. PQRS Compliance Statement: One or more of the following individualized dose reduction techniques were utilized for this examination: 1. Automated exposure control 2. Adjustment of the mA and/or kV according to patient size 3. Use of iterative reconstruction technique Electronically signed by: Kermit Lacy III, MD (04/18/2019 10:54 PM) [facility]
[2019-04-18 23:47] VITALS: BP 126/78
--- NOTE | 2019-04-19 01:51 | RAD ---
Chest AP portable at 1854: Reason for examination: Short of breath. Asthma. The heart size is normal. Mediastinum is unremarkable. Lung luong are clear. No acute bony abnormalities are seen. Impression: No acute cardiopulmonary disease. Electronically signed by: Estefani Trevino MD (04/19/2019 1:49 AM) [facility]
[2019-04-19 03:07] VITALS: BP 110/69
[2019-04-19 05:15] LABS: BASO % 0 % (0-3); EOS % 0 % (0-3); HEMATOCRIT 41.8 % (36.0-47.0); HEMOGLOBIN 14.1 g/dL (12.0-15.5); LYMPH # 0.6 x10^3/uL (1.0-4.8); LYMPH % 4 % (24-48); MEAN CORPUSCULAR HEMOGLOBIN 27 pg (25-35); MEAN CORPUSCULAR HGB CONC 34 g/dL (31-37); MEAN CORPUSCULAR VOLUME 80 fL (79-100); MONO # 0.1 x10^3/uL (0.0-1.1); MONO % 1 % (0-9); NEUT # 16.2 x10^3/uL (1.8-7.7); NEUT % 95 % (31-73); PLATELET COUNT 377 x10^3/uL (140-400); RED CELL DISTRIBUTION WIDTH 14.8 % (11.5-14.5)
[2019-04-19 05:22] LABS: ALBUMIN 2.9 g/dL (3.4-5.0); ALBUMIN/GLOBULIN RATIO 0.8 (1.0-1.7); CALCIUM 8.5 mg/dL (8.5-10.1); CREATININE 1.1 mg/dL (0.6-1.0); GFR 56.2; POTASSIUM 4.1 mmol/L (3.5-5.1); TOTAL BILIRUBIN 0.4 mg/dL (0.2-1.0); TOTAL PROTEIN 6.5 g/dL (6.4-8.2)
[2019-04-19 07:40] VITALS: BP 99/68
[2019-04-19] MEDS: IPRATRPIUM/ALBUTEROL 0.5/2.5MG 3 ML NEBU. NEB SCH ×2 (08:16→12:00)
[2019-04-19 11:10] VITALS: BP 105/61
--- NOTE | 2019-04-19 11:24 | EKG ---
[facility] [address] [place] [address] Test Date: 2019-04-18 Test Time: 18:59:14 Pat Name: MADALYN WEINBERG Department: Room: [facility] Gender: F Toe Trimmer: : 1985 Requested By: GUSTAVO WONG Order Number: [id number] Reading MD: Measurements Intervals [place] Rate: 128 P: 27 [place]: 122 QRS: 66 QRSD: 92 T: -15 QT: 300 QTc: 441 Interpretive Statements SINUS TACHYCARDIA ST ABNORMALITY, POSSIBLE INFERIOR SUBENDOCARDIAL INJURY ABNORMAL ECG No previous ECG available for comparison
--- NOTE | 2019-04-19 12:22 | PDOC1 ---
History and Physical Date of Admission Date of Admission DATE: 04/19/19 TIME: 12:21 Identification/Chief Complaint Chief Complaint SEEN IN ER , 34-year-old female presents to the emergency department with complaints of shortness of breath. Patient has underlying history of asthma states approximate 30 minutes prior to arrival she developed shortness of breath. She attended use inhalers at home however unsuccessful. She presented to the ER with respiratory rate in the 40s, speaking in 2 word sentences. She is coughing on examination, cachectic, use of accessory muscles.: Respiratory distress. IN ER Saturations 84% on initial arrival. Son is at bedside with patient providing hi story. FEELS MUCH BETTER TODAY, INSISTS ON GOIG HOME TODAY Past Medical History Past Medical History Past Medical History Past Medical History: Asthma Past Surgical History: Appendectomy Alcohol Use: None Drug Use: None FHX HTN Cardiovascular: No pertinent hx GI: No pertinent hx ENT: No pertinent hx Renal/: No pertinent hx Family History Family History: Hypertension Social History Smoke: No ALCOHOL: none Drugs: None Current Problem List Problem List Problems Medical Problems: (1) Asthma exacerbation Status: Acute (2) Hypoxia Status: Acute Current Medications Current Medications Current Medications Albuterol/ Ipratropium (Duoneb) 3 ml 1X ONCE NEB Last administered on 04/18/19at 19:09; Start 04/18/19 at 19:15; Stop 04/18/19 at 19:16; Status DC Methylprednisolone Sodium Succinate (SOLU-Medrol 125MG VIAL) 125 mg 1X ONCE IV Last administered on 04/18/19at 19:02; Start 04/18/19 at 19:15; Stop 04/18/19 at 19:16; Status DC Magnesium Sulfate 50 ml @ 25 mls/hr 1X ONCE IV Last administered on 04/18/19at 19:01; Start 04/18/19 at 19:00; Stop 04/18/19 at 20:59; Status DC Terbutaline Sulfate (Brethine) 0.25 mg 1X ONCE SQ ; Start 04/18/19 at 19:00; Stop 04/18/19 at 19:18; Status DC Albuterol/ Ipratropium (Duoneb) 3 ml 1X ONCE NEB Last administered on 04/18/19at 19:25; Start 04/18/19 at 19:30; Stop 04/18/19 at 19:31; Status DC Albuterol/ Ipratropium (Duoneb) 3 ml 1X ONCE NEB Last administered on 04/18/19at 19:26; Start 04/18/19 at 19:30; Stop 04/18/19 at 19:31; Status DC Sodium Chloride 1,000 ml @ 1,000 mls/hr 1X ONCE IV Last administered on 04/18/19at 19:40; Start 04/18/19 at 19:45; Stop 04/18/19 at 20:44; Status DC Ondansetron HCl (Zofran) 4 mg PRN Q8HRS PRN IV NAUSEA/VOMITING; Start 04/18/19 at 21:15; Stop 04/19/19 at 21:14 Acetaminophen (Tylenol) 650 mg PRN Q4HRS PRN PO FEVER; Start 04/18/19 at 21:15; Stop 04/19/19 at 21:14 Albuterol/ Ipratropium (Duoneb) 3 ml RTQID NEB Last administered on 04/19/19at 08:16; Start 04/19/19 at 08:00; Stop 04/20/19 at 07:59 Iohexol (Omnipaque 350 Mg/ml) 100 ml 1X ONCE IV Last administered on 04/18/19at 22:00; Start 04/18/19 at 22:00; Stop 04/18/19 at 22:01; Status DC Info (CONTRAST GIVEN -- Rx MONITORING) 1 each PRN DAILY PRN MC SEE COMMENTS; Start 04/18/19 at 22:00; Stop 04/20/19 at 21:59 Diphenhydramine HCl (Benadryl) 25 mg 1X ONCE IVP Last administered on 04/18/19at 22:45; Start 04/18/19 at 22:45; Stop 04/18/19 at 22:46; Status DC Famotidine (Pepcid Vial) 20 mg 1X ONCE IVP Last administered on 04/18/19at 22:45; Start 04/18/19 at 22:45; Stop 04/18/19 at 22:46; Status DC Active Scripts Active Prednisone 20 Mg Tablet 1 Tab PO BID 5 Days Zyrtec (Cetirizine Hcl) 10 Mg Tablet 1 Tab PO DAILY Azithromycin Tablet (Azithromycin) 250 Mg Tablet 1 Pkg PO UD Tessalon Perle (Benzonatate) 100 Mg Capsule 1 Cap PO TID Medrol (Methylprednisolone) 4 Mg Tab.ds.pk 1 Pkg PO UD Proventil Hfa (Albuterol Sulfate) 6.7 Gm Hfa.aer.ad 1 Puff INH PRN Q6HRS PRN Prednisone 50 Mg Tablet 1 Tab PO DAILY Proventil Hfa Inhaler (Albuterol Sulfate) 6.7 Gm Hfa.aer.ad 1 Puff IH PRN Q4HRS PRN Tessalon Perle (Benzonatate) 100 Mg Capsule 1 Cap PO TID Promethazine-Dm Syrup (D-Methorphan Hb/Prometh Hcl) 118 Ml Syrup 5 Ml PO PRN Q4HRS Atrovent Hfa (Ipratropium Mead) 12.9 Gm Hfa.aer.ad 12.9 Gm IH Q6HRS Prednisone 20 Mg Tablet 2 Tab PO DAILY 5 Days Prednisone 50 Mg Tablet 1 Tab PO DAILY Tylenol With Codeine #3 Tablet (Acetaminophen/Codeine Phosphate) 1 Each Tablet 1 Each PO Q4H PRN Ibuprofen 800 Mg Tablet 800 Mg PO Q6H PRN Reported Advair 250-50 Diskus (Fluticasone/Salmeterol) 1 Each Disk.w.dev 1 Puff IH BID Tablet (Pnv Cmb#95/Ferrous Fumarate/Fa) 1 Each Tablet 1 Tab PO DAILY Proair Hfa Inhaler (Albuterol Sulfate) 8.5 Gm Hfa.aer.ad 2 Puff IH PRN Q4-6HRS PRN Awa-D 24 Hour Tablet (Fexofenadine/Pseudoephedrine) 1 Each Tab.er.24h 1 Tab PO DAILY Allergies Allergies: Coded Allergies: No Known Drug Allergies (Unverified , 05/05/14) ROS General: YES: Fatigue PSYCHOLOGICAL ROS: No: Anxiety, Behavioral Disorder, Concentration difficultie, Decreased libido, Depression, Disorientation, Hallucinations, Hostility, Irritablity, Memory difficulties, Mood Swings, Obsessive thoughts, Physical abuse, Sexual abuse, Sleep disturbances, Suicidal ideation, Other HEENT: No: Heacaches, Visual Changes, Hearing change, Nasal congestion, Nasal discharge, Oral lesions, Sinus pain, Sore Throat, Epistaxis, Sneezing, Snoring, Tinnitus, Vertigo, Vocal changes, Other ALLERGY AND IMMUNOLOGY: No: Hives, Insect Bite Sensitivity, Itchy/Watery Eyes, Nasal Congestion, Post Nasal Drip, Seasonal Allergies, Other Hematological and Lymphatic: No: Bleeding Problems, Blood Clots, Blood Transfusions, Brusing, Night Sweats, Pallor, Swollen Lymph Nodes, Other Breast: No New/Changing Breast Lumps, No Nipple changes, No Nipple discharge, No Other Respiratory: YES: Other (BETTER) Gastrointestinal: No Nausea, No Vomiting, No Abdominal Pain, No Diarrhea, No Constipation, No Melena, No Hematochezia, No Other Genitourinary: No Dysuria, No Frequency, No Incontinence, No Hematuria, No Retention, No Discharge, No Urgency, No Pain, No Flank Pain, No Other, No , No , No , No , No , No , No Neurological: No Behavorial Changes, No Bowel/Bladder ControlChng, No Confusion, No Dizziness, No Gait Disturbance, No Headaches, No Impaired Coord/balance, No Memory Loss, No Numbness/Tingling, No Seizures, No Speech Problems, No Tremors, No Visual Changes, No Weakness, No Other Skin: No Dry Skin, No Eczema, No Hair Changes, No Lumps, No Mole Changes, No Mottling, No Nail Changes, No Pruritus, No Rash, No Skin Lesion Changes, No Other, No Acne Physical Exam Physical Exam Physical Exam Physical Exam Constitutional: Well developed, well nourished, no acute distress, non-toxic appearance. [] HENT: Normocephalic, atraumatic, bilateral external ears normal, oropharynx moist, no oral exudates, nose normal. [] Eyes: PERRLA, EOMI, conjunctiva normal, no discharge. [] Neck: Normal range of motion, no tenderness, supple, no stridor. [] Cardiovascular:Heart rate regular rhythm, no murmur [] Lungs & Thorax: Bilateral breath sounds clear to auscultation [] Abdomen: Bowel sounds normal, soft, no tenderness, no masses, no pulsatile masses. [] Skin: Warm, dry, no erythema, no rash. [] Back: No tenderness, no CVA tenderness. [] Extremities: No tenderness, no cyanosis, no clubbing, ROM intact, no edema. [] Neurologic: Alert and oriented X 3, normal motor function, normal sensory function, no focal deficits noted. [] Psychologic: Affect normal, judgement normal, mood normal. [] General: Alert, Oriented X3, Cooperative, No acute distress HEENT: Atraumatic, PERRLA Lungs: Clear to auscultation, Normal air movement Heart: S1S2, RRR, no thrills Breasts: Not examined Abdomen: Normal bowel sounds, Soft Rectal Exam: not examined PELVIC: Examination not indicated Extremities: No cyanosis Neuro: Normal speech, Strength at 5/5 X4 ext, Cranial nerves 3-12 NL Psych/Mental Status: Mental status NL, Mood NL Vitals Vitals Vital Signs Date Time Temp Pulse Resp B/P (MAP) Pulse Ox O2 Delivery O2 Flow Rate FiO2 04/19/19 11:10 97.9 87 16 105/61 (76) 98 Room Air 97.9 04/19/19 02:12 2.0 Labs Labs Laboratory Tests Test 04/18/19 18:55 04/18/19 21:30 04/19/19 04:10 White Blood Count 19.0 x10^3/uL (4.0-11.0) 17.0 x10^3/uL (4.0-11.0) Red Blood Count 5.63 x10^6/uL (3.50-5.40) 5.20 x10^6/uL (3.50-5.40) Hemoglobin 15.1 g/dL (12.0-15.5) 14.1 g/dL (12.0-15.5) Hematocrit 45.7 % (36.0-47.0) 41.8 % (36.0-47.0) Mean Corpuscular Volume 81 fL (79-100) 80 fL (79-100) Mean Corpuscular Hemoglobin 27 pg (25-35) 27 pg (25-35) Mean Corpuscular Hemoglobin Concent 33 g/dL (31-37) 34 g/dL (31-37) Red Cell Distribution Width 14.6 % (11.5-14.5) 14.8 % (11.5-14.5) Platelet Count 458 x10^3/uL (140-400) 377 x10^3/uL (140-400) Neutrophils (%) (Auto) 70 % (31-73) 95 % (31-73) Lymphocytes (%) (Auto) 22 % (24-48) 4 % (24-48) Monocytes (%) (Auto) 5 % (0-9) 1 % (0-9) Eosinophils (%) (Auto) 3 % (0-3) 0 % (0-3) Basophils (%) (Auto) 1 % (0-3) 0 % (0-3) Neutrophils # (Auto) 13.2 x10^3/uL (1.8-7.7) 16.2 x10^3/uL (1.8-7.7) Lymphocytes # (Auto) 4.2 x10^3/uL (1.0-4.8) 0.6 x10^3/uL (1.0-4.8) Monocytes # (Auto) 0.9 x10^3/uL (0.0-1.1) 0.1 x10^3/uL (0.0-1.1) Eosinophils # (Auto) 0.5 x10^3/uL (0.0-0.7) 0.0 x10^3/uL (0.0-0.7) Basophils # (Auto) 0.1 x10^3/uL (0.0-0.2) 0.0 x10^3/uL (0.0-0.2) Segmented Neutrophils % 79 % (35-66) Band Neutrophils % 2 % (0-9) Lymphocytes % 17 % (24-48) Monocytes % 1 % (0-10) Eosinophils % 1 % (0-5) Platelet Estimate Adequate (ADEQUATE) D-Dimer (Leanna) 0.53 ug/mlFEU (0.00-0.50) Sodium Level 140 mmol/L (136-145) 141 mmol/L (136-145) Potassium Level 3.5 mmol/L (3.5-5.1) 4.1 mmol/L (3.5-5.1) Chloride Level 104 mmol/L (98-107) 108 mmol/L (98-107) Carbon Dioxide Level 24 mmol/L (21-32) 20 mmol/L (21-32) Anion Gap 12 (6-14) 13 (6-14) Blood Urea Nitrogen 7 mg/dL (7-20) 12 mg/dL (7-20) Creatinine 1.0 mg/dL (0.6-1.0) 1.1 mg/dL (0.6-1.0) Estimated GFR (Cockcroft-Gault) 62.7 56.2 BUN/Creatinine Ratio 7 (6-20) 11 (6-20) Glucose Level 109 mg/dL (70-99) 156 mg/dL (70-99) Calcium Level 8.9 mg/dL (8.5-10.1) 8.5 mg/dL (8.5-10.1) Total Bilirubin 0.3 mg/dL (0.2-1.0) 0.4 mg/dL (0.2-1.0) Aspartate Amino Transf (AST/SGOT) 19 U/L (15-37) 16 U/L (15-37) Alanine Aminotransferase (ALT/SGPT) 23 U/L (14-59) 25 U/L (14-59) Alkaline Phosphatase 113 U/L (46-116) 100 U/L (46-116) Total Protein 6.9 g/dL (6.4-8.2) 6.5 g/dL (6.4-8.2) Albumin 3.2 g/dL (3.4-5.0) 2.9 g/dL (3.4-5.0) Albumin/Globulin Ratio 0.9 (1.0-1.7) 0.8 (1.0-1.7) Bedside Urine HCG, Qualitative Hcg negative (Negative) Laboratory Tests Test 04/18/19 18:55 04/18/19 21:30 04/19/19 04:10 White Blood Count 19.0 x10^3/uL (4.0-11.0) 17.0 x10^3/uL (4.0-11.0) Red Blood Count 5.63 x10^6/uL (3.50-5.40) 5.20 x10^6/uL (3.50-5.40) Hemoglobin 15.1 g/dL (12.0-15.5) 14.1 g/dL (12.0-15.5) Hematocrit 45.7 % (36.0-47.0) 41.8 % (36.0-47.0) Mean Corpuscular Volume 81 fL (79-100) 80 fL (79-100) Mean Corpuscular Hemoglobin 27 pg (25-35) 27 pg (25-35) Mean Corpuscular Hemoglobin Concent 33 g/dL (31-37) 34 g/dL (31-37) Red Cell Distribution Width 14.6 % (11.5-14.5) 14.8 % (11.5-14.5) Platelet Count 458 x10^3/uL (140-400) 377 x10^3/uL (140-400) Neutrophils (%) (Auto) 70 % (31-73) 95 % (31-73) Lymphocytes (%) (Auto) 22 % (24-48) 4 % (24-48) Monocytes (%) (Auto) 5 % (0-9) 1 % (0-9) Eosinophils (%) (Auto) 3 % (0-3) 0 % (0-3) Basophils (%) (Auto) 1 % (0-3) 0 % (0-3) Neutrophils # (Auto) 13.2 x10^3/uL (1.8-7.7) 16.2 x10^3/uL (1.8-7.7) Lymphocytes # (Auto) 4.2 x10^3/uL (1.0-4.8) 0.6 x10^3/uL (1.0-4.8) Monocytes # (Auto) 0.9 x10^3/uL (0.0-1.1) 0.1 x10^3/uL (0.0-1.1) Eosinophils # (Auto) 0.5 x10^3/uL (0.0-0.7) 0.0 x10^3/uL (0.0-0.7) Basophils # (Auto) 0.1 x10^3/uL (0.0-0.2) 0.0 x10^3/uL (0.0-0.2) Segmented Neutrophils % 79 % (35-66) Band Neutrophils % 2 % (0-9) Lymphocytes % 17 % (24-48) Monocytes % 1 % (0-10) Eosinophils % 1 % (0-5) Platelet Estimate Adequate (ADEQUATE) D-Dimer (Leanna) 0.53 ug/mlFEU (0.00-0.50) Sodium Level 140 mmol/L (136-145) 141 mmol/L (136-145) Potassium Level 3.5 mmol/L (3.5-5.1) 4.1 mmol/L (3.5-5.1) Chloride Level 104 mmol/L (98-107) 108 mmol/L (98-107) Carbon Dioxide Level 24 mmol/L (21-32) 20 mmol/L (21-32) Anion Gap 12 (6-14) 13 (6-14) Blood Urea Nitrogen 7 mg/dL (7-20) 12 mg/dL (7-20) Creatinine 1.0 mg/dL (0.6-1.0) 1.1 mg/dL (0.6-1.0) Estimated GFR (Cockcroft-Gault) 62.7 56.2 BUN/Creatinine Ratio 7 (6-20) 11 (6-20) Glucose Level 109 mg/dL (70-99) 156 mg/dL (70-99) Calcium Level 8.9 mg/dL (8.5-10.1) 8.5 mg/dL (8.5-10.1) Total Bilirubin 0.3 mg/dL (0.2-1.0) 0.4 mg/dL (0.2-1.0) Aspartate Amino Transf (AST/SGOT) 19 U/L (15-37) 16 U/L (15-37) Alanine Aminotransferase (ALT/SGPT) 23 U/L (14-59) 25 U/L (14-59) Alkaline Phosphatase 113 U/L (46-116) 100 U/L (46-116) Total Protein 6.9 g/dL (6.4-8.2) 6.5 g/dL (6.4-8.2) Albumin 3.2 g/dL (3.4-5.0) 2.9 g/dL (3.4-5.0) Albumin/Globulin Ratio 0.9 (1.0-1.7) 0.8 (1.0-1.7) Bedside Urine HCG, Qualitative Hcg negative (Negative) VTE Prophylaxis Ordered VTE Prophylaxis Devices: No VTE Pharmacological Prophylaxi: No Assessment/Plan Assessment/Plan Impression: ACUTE Asthma exacerbation, IMPROVED OBESITY Hypoxia, RESOLVED ADMITTED D/C TODAY PREDNISONE TAPER Z-PACK INHALER, ALBUTEROL Q 4 HRS 2 PUFFS PRN AVOID SMOKE, DUST 54 MIN ADMIT/ D/C PLANNING TIME KEVIN ENGEL MD Apr 19, 2019 12:22
--- NOTE | 2019-04-19 12:28 | NUR ---
Pt states she feels great and is ready to DC. Did not need her noon breathing treatment. On RA sats at 96%. Denies SOA, pain. Cont. to monitor.
[2019-04-19] MEDS ORDERED: IV NORMAL SALINE 1000ML BAG 1,000 ML IV SCH (12:29)
[2019-04-19] MEDS ORDERED: DOCUSATE SODIUM 100 MG CAPSULE. PO PRN (12:30)
[2019-04-19] MEDS ORDERED: ACETAMINOPHEN 325 MG TABLET. PO PRN (12:30)
[2019-04-19] MEDS ORDERED: 0.9 % SODIUM CHLORIDE 10 ML DISP.SYRIN. IV PRN (12:30)
[2019-04-19] MEDS ORDERED: ALBUTEROL SULFATE 2.5 MG/3 ML NEBU. NEB PRN (12:30)
[2019-04-19] MEDS ORDERED: cloNIDine HCL 0.1 MG TABLET PO PRN (12:30)
[2019-04-19] MEDS ORDERED: ONDANSETRON PF 4 MG/2 ML VIAL. IV PRN (12:30)
[2019-04-19] MEDS ORDERED: LORazepam 0.5 MG TABLET PO PRN (12:30)
[2019-04-19] MEDS ORDERED: ENOXAPARIN 40 MG/0.4 ML SYRINGE. SQ SCH (13:00)
[2019-04-19] MEDS ORDERED: AZITHROMYCIN 250 MG TABLET. PO SCH (13:00)
[2019-04-19] MEDS ORDERED: PROMETHAZINE 6.25 MG/5 ML SYRUP. PO PRN (13:00)
--- NOTE | 2019-04-19 13:12 | PDOC3 ---
Discharge Summary Date of Admission: Apr 18, 2019 Date of Discharge: Apr 19, 2019 Follow-Up: 3-5 days Admitting Diagnosis comment: DISCHARGE DX Assessment/Plan Impression: ACUTE Asthma exacerbation, IMPROVED OBESITY Hypoxia, RESOLVED ADMITTED D/C TODAY PREDNISONE TAPER Z-PACK INHALER, ALBUTEROL Q 4 HRS 2 PUFFS PRN AVOID SMOKE, DUST 54 MIN ADMIT/ D/C PLANNING TIME FINAL DIAGNOSIS Problems Medical Problems: (1) Asthma exacerbation Status: Acute (2) Hypoxia Status: Acute Brief Hospital Course Ms. Mehta is a 34 old [sex] who presented with [ ACUTE ASTHMA EXAC] CONDITION AT DISCHARGE: Improved Discharge Medications Current Medications Albuterol/ Ipratropium (Duoneb) 3 ml 1X ONCE NEB Last administered on 04/18/19at 19:09; Start 04/18/19 at 19:15; Stop 04/18/19 at 19:16; Status DC Methylprednisolone Sodium Succinate (SOLU-Medrol 125MG VIAL) 125 mg 1X ONCE IV Last administered on 04/18/19at 19:02; Start 04/18/19 at 19:15; Stop 04/18/19 at 19:16; Status DC Magnesium Sulfate 50 ml @ 25 mls/hr 1X ONCE IV Last administered on 04/18/19at 19:01; Start 04/18/19 at 19:00; Stop 04/18/19 at 20:59; Status DC Terbutaline Sulfate (Brethine) 0.25 mg 1X ONCE SQ ; Start 04/18/19 at 19:00; Stop 04/18/19 at 19:18; Status DC Albuterol/ Ipratropium (Duoneb) 3 ml 1X ONCE NEB Last administered on 04/18/19at 19:25; Start 04/18/19 at 19:30; Stop 04/18/19 at 19:31; Status DC Albuterol/ Ipratropium (Duoneb) 3 ml 1X ONCE NEB Last administered on 04/18/19at 19:26; Start 04/18/19 at 19:30; Stop 04/18/19 at 19:31; Status DC Sodium Chloride 1,000 ml @ 1,000 mls/hr 1X ONCE IV Last administered on 04/18/19at 19:40; Start 04/18/19 at 19:45; Stop 04/18/19 at 20:44; Status DC Ondansetron HCl (Zofran) 4 mg PRN Q8HRS PRN IV NAUSEA/VOMITING; Start 04/18/19 at 21:15; Stop 04/19/19 at 21:14 Acetaminophen (Tylenol) 650 mg PRN Q4HRS PRN PO FEVER; Start 04/18/19 at 21:1 5; Stop 04/19/19 at 21:14 Albuterol/ Ipratropium (Duoneb) 3 ml RTQID NEB Last administered on 04/19/19at 08:16; Start 04/19/19 at 08:00; Stop 04/20/19 at 07:59 Iohexol (Omnipaque 350 Mg/ml) 100 ml 1X ONCE IV Last administered on 04/18/19at 22:00; Start 04/18/19 at 22:00; Stop 04/18/19 at 22:01; Status DC Info (CONTRAST GIVEN -- Rx MONITORING) 1 each PRN DAILY PRN MC SEE COMMENTS; Start 04/18/19 at 22:00; Stop 04/20/19 at 21:59 Diphenhydramine HCl (Benadryl) 25 mg 1X ONCE IVP Last administered on 04/18/19at 22:45; Start 04/18/19 at 22:45; Stop 04/18/19 at 22:46; Status DC Famotidine (Pepcid Vial) 20 mg 1X ONCE IVP Last administered on 04/18/19at 22:45; Start 04/18/19 at 22:45; Stop 04/18/19 at 22:46; Status DC Azithromycin (Zithromax) 250 mg DAILY08 PO ; Start 04/19/19 at 13:00 Benzonatate (Tessalon Perle) 100 mg TID PO ; Start 04/19/19 at 14:00 Cetirizine HCl (ZyrTEC) 10 mg DAILY PO ; Start 04/20/19 at 09:00 Prednisone (Prednisone) 20 mg BID PO ; Start 04/19/19 at 21:00; Status UNV Promethazine HCl (Phenergan Syrup) 6.25 mg PRN Q6HRS PRN PO NAUSEA/VOMITING; Start 04/19/19 at 13:00; Stop 04/19/19 at 12:53; Status DC Pseudoephedrine HCl (Sudafed 12-Hour) 120 mg DAILY PO ; Start 04/20/19 at 09:00 Albuterol Sulfate (Ventolin Neb Soln) 2.5 mg RTQID NEB ; Start 04/19/19 at 16:00 Multivit/ Folic Acid/Iron (Multivitamin ) 1 tab DAILY PO ; Start 04/20/19 at 09:00 Methylprednisolone Sodium Succinate (SOLU-Medrol 125MG VIAL) 80 mg Q8HRS IV ; Start 04/19/19 at 14:00 Sodium Chloride (Normal Saline Flush) 3 ml QSHIFT PRN IV AFTER MEDS AND BLOOD DRAWS; Start 04/19/19 at 12:30 Sodium Chloride 1,000 ml @ 100 mls/hr Q10H IV ; Start 04/19/19 at 12:29 Ondansetron HCl (Zofran) 4 mg PRN Q4HRS PRN IV NAUSEA/VOMITING; Start 04/19/19 at 12:30 Acetaminophen (Tylenol) 650 mg PRN Q4HRS PRN PO TEMP OVER 100.4F OR MILD PAIN; Start 04/19/19 at 12:30 Clonidine HCl (Catapres) 0.1 mg PRN Q6HRS PRN PO SBP>160 OR DBP>90; Start 04/19/19 at 12:30 Docusate Sodium (Colace) 100 mg PRN BID PRN PO CONSTIPATION; Start 04/19/19 at 12:30 Albuterol Sulfate (Ventolin Neb Soln) 2.5 mg PRN Q4HRS PRN NEB SHORTNESS OF BREATH; Start 04/19/19 at 12:30 Lorazepam (Ativan) 0.5 mg PRN Q4HRS PRN PO ANXIETY / AGITATION; Start 04/19/19 at 12:30 Enoxaparin Sodium (Lovenox 40mg Syringe) 40 mg DAILY SQ ; Start 04/19/19 at 13:00 Budesonide (Pulmicort) 0.5 mg RTBID NEB ; Start 04/19/19 at 20:00 Active Scripts Active Prednisone 20 Mg Tablet 1 Tab PO BID 5 Days Zyrtec (Cetirizine Hcl) 10 Mg Tablet 1 Tab PO DAILY Azithromycin Tablet (Azithromycin) 250 Mg Tablet 1 Pkg PO UD Tessalon Perle (Benzonatate) 100 Mg Capsule 1 Cap PO TID Medrol (Methylprednisolone) 4 Mg Tab.ds.pk 1 Pkg PO UD Proventil Hfa (Albuterol Sulfate) 6.7 Gm Hfa.aer.ad 1 Puff INH PRN Q6HRS PRN Prednisone 50 Mg Tablet 1 Tab PO DAILY Proventil Hfa Inhaler (Albuterol Sulfate) 6.7 Gm Hfa.aer.ad 1 Puff IH PRN Q4HRS PRN Tessalon Perle (Benzonatate) 100 Mg Capsule 1 Cap PO TID Promethazine-Dm Syrup (D-Methorphan Hb/Prometh Hcl) 118 Ml Syrup 5 Ml PO PRN Q4HRS Atrovent Hfa (Ipratropium [place]) 12.9 Gm Hfa.aer.ad 12.9 Gm IH Q6HRS Prednisone 20 Mg Tablet 2 Tab PO DAILY 5 Days Prednisone 50 Mg Tablet 1 Tab PO DAILY Tylenol With Codeine #3 Tablet (Acetaminophen/Codeine Phosphate) 1 Each Tablet 1 Each PO Q4H PRN Ibuprofen 800 Mg Tablet 800 Mg PO Q6H PRN Reported Advair 250-50 Diskus (Fluticasone/Salmeterol) 1 Each Disk.w.dev 1 Puff IH BID Tablet (Pnv Cmb#95/Ferrous Fumarate/Fa) 1 Each Tablet 1 Tab PO DAILY Proair Hfa Inhaler (Albuterol Sulfate) 8.5 Gm Hfa.aer.ad 2 Puff IH PRN Q4-6HRS PRN Awa-D 24 Hour Tablet (Fexofenadine/Pseudoephedrine) 1 Each Tab.er.24h 1 Tab PO DAILY Vital Signs Vital Signs Date Time Temp Pulse Resp B/P (MAP) Pulse Ox O2 Delivery O2 Flow Rate FiO2 04/19/19 11:10 97.9 87 16 105/61 (76) 98 Room Air 97.9 04/19/19 02:12 2.0 Labs Laboratory Tests Test 04/18/19 18:55 04/18/19 21:30 04/19/19 04:10 White Blood Count 19.0 x10^3/uL (4.0-11.0) 17.0 x10^3/uL (4.0-11.0) Red Blood Count 5.63 x10^6/uL (3.50-5.40) 5.20 x10^6/uL (3.50-5.40) Hemoglobin 15.1 g/dL (12.0-15.5) 14.1 g/dL (12.0-15.5) Hematocrit 45.7 % (36.0-47.0) 41.8 % (36.0-47.0) Mean Corpuscular Volume 81 fL (79-100) 80 fL (79-100) Mean Corpuscular Hemoglobin 27 pg (25-35) 27 pg (25-35) Mean Corpuscular Hemoglobin Concent 33 g/dL (31-37) 34 g/dL (31-37) Red Cell Distribution Width 14.6 % (11.5-14.5) 14.8 % (11.5-14.5) Platelet Count 458 x10^3/uL (140-400) 377 x10^3/uL (140-400) Neutrophils (%) (Auto) 70 % (31-73) 95 % (31-73) Lymphocytes (%) (Auto) 22 % (24-48) 4 % (24-48) Monocytes (%) (Auto) 5 % (0-9) 1 % (0-9) Eosinophils (%) (Auto) 3 % (0-3) 0 % (0-3) Basophils (%) (Auto) 1 % (0-3) 0 % (0-3) Neutrophils # (Auto) 13.2 x10^3/uL (1.8-7.7) 16.2 x10^3/uL (1.8-7.7) Lymphocytes # (Auto) 4.2 x10^3/uL (1.0-4.8) 0.6 x10^3/uL (1.0-4.8) Monocytes # (Auto) 0.9 x10^3/uL (0.0-1.1) 0.1 x10^3/uL (0.0-1.1) Eosinophils # (Auto) 0.5 x10^3/uL (0.0-0.7) 0.0 x10^3/uL (0.0-0.7) Basophils # (Auto) 0.1 x10^3/uL (0.0-0.2) 0.0 x10^3/uL (0.0-0.2) Segmented Neutrophils % 79 % (35-66) Band Neutrophils % 2 % (0-9) Lymphocytes % 17 % (24-48) Monocytes % 1 % (0-10) Eosinophils % 1 % (0-5) Platelet Estimate Adequate (ADEQUATE) D-Dimer (Leanna) 0.53 ug/mlFEU (0.00-0.50) Sodium Level 140 mmol/L (136-145) 141 mmol/L (136-145) Potassium Level 3.5 mmol/L (3.5-5.1) 4.1 mmol/L (3.5-5.1) Chloride Level 104 mmol/L (98-107) 108 mmol/L (98-107) Carbon Dioxide Level 24 mmol/L (21-32) 20 mmol/L (21-32) Anion Gap 12 (6-14) 13 (6-14) Blood Urea Nitrogen 7 mg/dL (7-20) 12 mg/dL (7-20) Creatinine 1.0 mg/dL (0.6-1.0) 1.1 mg/dL (0.6-1.0) Estimated GFR (Cockcroft-Gault) 62.7 56.2 BUN/Creatinine Ratio 7 (6-20) 11 (6-20) Glucose Level 109 mg/dL (70-99) 156 mg/dL (70-99) Calcium Level 8.9 mg/dL (8.5-10.1) 8.5 mg/dL (8.5-10.1) Total Bilirubin 0.3 mg/dL (0.2-1.0) 0.4 mg/dL (0.2-1.0) Aspartate Amino Transf (AST/SGOT) 19 U/L (15-37) 16 U/L (15-37) Alanine Aminotransferase (ALT/SGPT) 23 U/L (14-59) 25 U/L (14-59) Alkaline Phosphatase 113 U/L (46-116) 100 U/L (46-116) Total Protein 6.9 g/dL (6.4-8.2) 6.5 g/dL (6.4-8.2) Albumin 3.2 g/dL (3.4-5.0) 2.9 g/dL (3.4-5.0) Albumin/Globulin Ratio 0.9 (1.0-1.7) 0.8 (1.0-1.7) Bedside Urine HCG, Qualitative Hcg negative (Negative) Laboratory Tests Test 04/18/19 18:55 04/18/19 21:30 04/19/19 04:10 White Blood Count 19.0 x10^3/uL (4.0-11.0) 17.0 x10^3/uL (4.0-11.0) Red Blood Count 5.63 x10^6/uL (3.50-5.40) 5.20 x10^6/uL (3.50-5.40) Hemoglobin 15.1 g/dL (12.0-15.5) 14.1 g/dL (12.0-15.5) Hematocrit 45.7 % (36.0-47.0) 41.8 % (36.0-47.0) Mean Corpuscular Volume 81 fL (79-100) 80 fL (79-100) Mean Corpuscular Hemoglobin 27 pg (25-35) 27 pg (25-35) Mean Corpuscular Hemoglobin Concent 33 g/dL (31-37) 34 g/dL (31-37) Red Cell Distribution Width 14.6 % (11.5-14.5) 14.8 % (11.5-14.5) Platelet Count 458 x10^3/uL (140-400) 377 x10^3/uL (140-400) Neutrophils (%) (Auto) 70 % (31-73) 95 % (31-73) Lymphocytes (%) (Auto) 22 % (24-48) 4 % (24-48) Monocytes (%) (Auto) 5 % (0-9) 1 % (0-9) Eosinophils (%) (Auto) 3 % (0-3) 0 % (0-3) Basophils (%) (Auto) 1 % (0-3) 0 % (0-3) Neutrophils # (Auto) 13.2 x10^3/uL (1.8-7.7) 16.2 x10^3/uL (1.8-7.7) Lymphocytes # (Auto) 4.2 x10^3/uL (1.0-4.8) 0.6 x10^3/uL (1.0-4.8) Monocytes # (Auto) 0.9 x10^3/uL (0.0-1.1) 0.1 x10^3/uL (0.0-1.1) Eosinophils # (Auto) 0.5 x10^3/uL (0.0-0.7) 0.0 x10^3/uL (0.0-0.7) Basophils # (Auto) 0.1 x10^3/uL (0.0-0.2) 0.0 x10^3/uL (0.0-0.2) Segmented Neutrophils % 79 % (35-66) Band Neutrophils % 2 % (0-9) Lymphocytes % 17 % (24-48) Monocytes % 1 % (0-10) Eosinophils % 1 % (0-5) Platelet Estimate Adequate (ADEQUATE) D-Dimer (Leanna) 0.53 ug/mlFEU (0.00-0.50) Sodium Level 140 mmol/L (136-145) 141 mmol/L (136-145) Potassium Level 3.5 mmol/L (3.5-5.1) 4.1 mmol/L (3.5-5.1) Chloride Level 104 mmol/L (98-107) 108 mmol/L (98-107) Carbon Dioxide Level 24 mmol/L (21-32) 20 mmol/L (21-32) Anion Gap 12 (6-14) 13 (6-14) Blood Urea Nitrogen 7 mg/dL (7-20) 12 mg/dL (7-20) Creatinine 1.0 mg/dL (0.6-1.0) 1.1 mg/dL (0.6-1.0) Estimated GFR (Cockcroft-Gault) 62.7 56.2 BUN/Creatinine Ratio 7 (6-20) 11 (6-20) Glucose Level 109 mg/dL (70-99) 156 mg/dL (70-99) Calcium Level 8.9 mg/dL (8.5-10.1) 8.5 mg/dL (8.5-10.1) Total Bilirubin 0.3 mg/dL (0.2-1.0) 0.4 mg/dL (0.2-1.0) Aspartate Amino Transf (AST/SGOT) 19 U/L (15-37) 16 U/L (15-37) Alanine Aminotransferase (ALT/SGPT) 23 U/L (14-59) 25 U/L (14-59) Alkaline Phosphatase 113 U/L (46-116) 100 U/L (46-116) Total Protein 6.9 g/dL (6.4-8.2) 6.5 g/dL (6.4-8.2) Albumin 3.2 g/dL (3.4-5.0) 2.9 g/dL (3.4-5.0) Albumin/Globulin Ratio 0.9 (1.0-1.7) 0.8 (1.0-1.7) Bedside Urine HCG, Qualitative Hcg negative (Negative) Allergies Allergies Coded Allergies Type Severity Reaction Last Updated Verified No Known Drug Allergies 05/05/14 No Disposition/Orders: D/C to Home Patient Instructions D/C PLANNING 54 MIN KEVIN ENGEL MD Apr 19, 2019 13:12
[2019-04-19] MEDS ORDERED: AZIT250T PO (13:14)
--- NOTE | 2019-04-19 13:15 | DISCH ---
DISCHARGE INSTRUCTIONS Condition on Discharge Condition on Discharge: Stable Activity After Discharge Activity Instructions for Disc: No restrictions Lifting Instructions after Dis: No heavy lifting, No pulling or pushing, Do not lift >10 pounds Exercise Instruction after Dis: Progress as tolerated Driving Instructions after Dis: Do not drive today, No driving for 2 weeks Weight Bearing Status after Di: As tolerated Diet after Discharge Diet after Discharge: Regular Diet Texture: Regular Wound Incision Care Wound/Incision Care: No wound care needed Checks after Discharge Checks after discharge: Check blood press - daily, Check your Temp as needed Contacting the DR. after DC Call your doctor for: If your condition worsens Treatment/Equipment after DC Adaptive Equipment Issued: None KEVIN ENGEL MD Apr 19, 2019 13:15
--- NOTE | 2019-04-19 13:40 | NUR ---
Discharge Note: MADALYN COLBY [address] [place] [address] Discharge instructions and discharge home medications reviewed with Patient (in Yi) and a copy given (in Yi). All questions have been answered and understanding verbalized. The following instructions and handouts were given: Asthma, ABT&R Discontinued lines and drains: Peripheral iv. Patient discharged to Home or Self Care with Family Member via [facility].
[2019-04-19] MEDS ORDERED: BENZONATATE 100 MG CAPSULE. PO SCH (14:00)
[2019-04-19] MEDS ORDERED: methylPREDNISolone SOD SUCC PF 125 MG/2 ML VIAL. IV SCH (14:00)
[2019-04-19] MEDS ORDERED: ALBUTEROL SULFATE 2.5 MG/3 ML NEBU. NEB SCH (16:00)
[2019-04-19] MEDS ORDERED: BUDESONIDE 0.5 MG/2 ML NEBU. NEB SCH (20:00)
[2019-04-19] MEDS ORDERED: predniSONE 20 MG TABLET PO SCH (21:00)
[2019-04-20] MEDS ORDERED: PSEUDOEPHEDRINE ER 120 MG TABLET.ER. PO SCH (09:00)
[2019-04-20] MEDS ORDERED: CETIRIZINE HCL 10 MG TABLET. PO SCH (09:00)
[2019-04-20] MEDS ORDERED: PRENATAL MULTIVITAMIN TABLET. PO SCH (09:00)
== END 2019-04-19 13:43 | disposition home or self-care (01) ==
LOC: ER 18:50 → 6 SOUTH 21:07
PROVIDERS: ADMIT Internal Medicine; ATTEND Internal Medicine
DX: J45.901 Unspecified asthma with (acute) exacerbation (principal); E66.9 Obesity, unspecified; Z82.49 Family history of ischemic heart disease and other diseases of the circulatory system; Z90.49 Acquired absence of other specified parts of digestive tract
CPT/HCPCS: 36415; 71045; 71275; 80053; 81025; 85007; 85025; 85379; 93005; 94640; 94644; 96365; 96366; 96375; 99291; G0378; J1200; J2930; J3475; J3490; J7030; J7620; Q9967; G0379

== ENCOUNTER 2019-09-06 23:58 | Emergency (ER) | payer SELFPAY ==
[~2019-09-06 23:58] MED LIST changes: +AZIT250T PO; -CETI10TA22 PO; +CETI10TA24 PO; +PROVENTIL HFA6.7 GM IH
== END 2019-09-07 00:12 | disposition left against medical advice (07) ==
LOC: ER 23:58
DX: I47.1 Supraventricular tachycardia (principal); R07.89 Other chest pain; Z53.21 Procedure and treatment not carried out due to patient leaving prior to being seen by health care provider

== ENCOUNTER 2021-04-05 02:02 | Emergency (ER) | payer SELFPAY ==
[~2021-04-05] VITALS: Ht 160 cm; Wt 72.0 kg
[~2021-04-05 02:02] MED LIST changes: -CETI10TA24 PO; +CETI10TA74 PO; +PROM118S10 PO; -PROM118S9 PO
--- NOTE | 2021-04-05 02:12 | PHYS DOC ---
Past Medical History Past Medical History: Asthma Past Surgical History: Appendectomy Smoking Status: Never Smoker Alcohol Use: None Drug Use: None General Adult EDM: Chief Complaint: ASTHMA HPI: HPI: Patient is a 36 year old female with history of asthma, present to ER due to trouble breathing and wheezing started a few hours ago. Patient has used inhaler at home but did not get any better so she came in for evaluation. Patient denies any, fever, no abdominal pain, no nausea vomiting. Patient is fully vaccinated for COVID-19. Patient did not have any chest pain. Patient said for the last week she has been using her inhaler more often due to trouble breathing. Denies she has some nonproductive cough and then she started having wheezings, you her inhaler treatment did not get better so she came in for effie luation. Patient denies any sick contact at home. Review of Systems: Review of Systems: Constitutional: Denies fever or chills. [] Eyes: Denies change in visual acuity. [] HENT: Denies nasal congestion or sore throat. [] Respiratory: Positive for cough and trouble breathing. Cardiovascular: Denies chest pain or edema. [] GI: Denies abdominal pain, nausea, vomiting, bloody stools or diarrhea. [] : Denies dysuria. [] Musculoskeletal: Denies back pain or joint pain. [] Integument: Denies rash. [] Neurologic: Denies headache, focal weakness or sensory changes. [] Endocrine: Denies polyuria or polydipsia. [] Lymphatic: Denies swollen glands. [] Psychiatric: Denies depression or anxiety. [] Heart Score: C/O Chest Pain: N/A Risk Factors: Risk Factors: DM, Current or recent (<one month) smoker, HTN, HLP, family history of CAD, obesity. Risk Scores: Score 0 - 3: 2.5% MACE over next 6 weeks - Discharge Home Score 4 - 6: 20.3% MACE over next 6 weeks - Admit for Clinical Observation Score 7 - 10: 72.7% MACE over next 6 weeks - Early Invasive Strategies Current Medications: Current Medications Medications (Trade) Dose Ordered Sig/Harish Start Time Stop Time Status Last Admin Dose Admin Albuterol/ Ipratropium (Duoneb) 3 ml 1X ONCE 04/05/21 02:15 04/05/21 02:16 UNV Methylprednisolone Sodium Succinate (SOLU-Medrol 125MG VIAL) 125 mg 1X ONCE 04/05/21 02:15 04/05/21 02:16 UNV Allergies: Allergies: Allergies Coded Allergies Type Severity Reaction Last Updated Verified No Known Drug Allergies 05/05/14 No Physical Exam: PE: Constitutional: Well developed, well nourished, no acute distress, non-toxic appearance. [] HENT: Normocephalic, atraumatic, bilateral external ears normal, oropharynx moist, no oral exudates, nose normal. [] Eyes: PERRLA, EOMI, conjunctiva normal, no discharge. [] Neck: Normal range of motion, no tenderness, supple, no stridor. [] Cardiovascular: Sinus tachycardia, no murmur [] Lungs & Thorax: Tachypnea, increased work of breathing, severe wheezing to auscultation Abdomen: Bowel sounds normal, soft, no tenderness, no masses, no pulsatile masses. [] Skin: Warm, dry, no erythema, no rash. [] Back: No tenderness, no CVA tenderness. [] Extremities: No tenderness, no cyanosis, no clubbing, ROM intact, no edema. [] Neurologic: Alert and oriented X 3, normal motor function, normal sensory function, no focal deficits noted. [] Psychologic: Affect normal, judgement normal, mood normal. [] Current Patient Data: Labs: Laboratory Tests Test 04/05/21 02:20 04/05/21 02:35 White Blood Count 13.8 x10^3/uL Red Blood Count 5.18 x10^6/uL Hemoglobin 14.8 g/dL Hematocrit 42.6 % Mean Corpuscular Volume 82 fL Mean Corpuscular Hemoglobin 29 pg Mean Corpuscular Hemoglobin Concent 35 g/dL Red Cell Distribution Width 13.7 % Platelet Count 383 x10^3/uL Neutrophils (%) (Auto) 63 % Lymphocytes (%) (Auto) 23 % Monocytes (%) (Auto) 5 % Eosinophils (%) (Auto) 8 % Basophils (%) (Auto) 1 % Neutrophils # (Auto) 8.7 x10^3/uL Lymphocytes # (Auto) 3.2 x10^3/uL Monocytes # (Auto) 0.8 x10^3/uL Eosinophils # (Auto) 1.1 x10^3/uL Basophils # (Auto) 0.2 x10^3/uL Segmented Neutrophils % 54 % Lymphocytes % 33 % Monocytes % 4 % Eosinophils % 6 % Basophils % 3 % Platelet Estimate Adequate Sodium Level 138 mmol/L Potassium Level 3.2 mmol/L Chloride Level 106 mmol/L Carbon Dioxide Level 21 mmol/L Anion Gap 11 Blood Urea Nitrogen 11 mg/dL Creatinine 0.8 mg/dL Estimated GFR (Cockcroft-Gault) 80.3 BUN/Creatinine Ratio 14 Glucose Level 100 mg/dL Calcium Level 8.8 mg/dL Magnesium Level 2.1 mg/dL Total Bilirubin 0.4 mg/dL Aspartate Amino Transf (AST/SGOT) 12 U/L Alanine Aminotransferase (ALT/SGPT) 24 U/L Alkaline Phosphatase 95 U/L Total Protein 7.2 g/dL Albumin 3.5 g/dL Albumin/Globulin Ratio 0.9 SARS-CoV-2 Antigen (Rapid) Negative Current Medications Medications (Trade) Dose Ordered Sig/Harish Route PRN Reason Start Time Stop Time Status Last Admin Dose Admin Albuterol/ Ipratropium (Duoneb) 3 ml 1X ONCE NEB 04/05/21 02:15 04/05/21 02:16 DC 04/05/21 02:15 Methylprednisolone Sodium Succinate (SOLU-Medrol 125MG VIAL) 125 mg 1X ONCE IV 04/05/21 02:15 04/05/21 02:16 DC 04/05/21 02:31 Potassium Chloride (Klor-Con) 40 meq 1X ONCE PO 04/05/21 03:00 04/05/21 03:01 DC 04/05/21 03:13 Albuterol/ Ipratropium (Duoneb) 3 ml 1X ONCE NEB 04/05/21 04:00 04/05/21 04:01 DC 04/05/21 04:15 EKG: EKG: [] Radiology/Procedures: Radiology/Procedures: [][facility] [address] [place] [address] IMAGING REPORT Signed PATIENT: MADALYN WEINBERG AACCOUNT: [id number] : 1985 LOCATION: ER AGE: 36 SEX: F EXAM STATUS: REG ER ORD. PHYSICIAN: RASTA HEIN DO REASON: soa, cough, wheezing PROCEDURE: CHEST AP ONLY Single view chest dated 04/05/2021 2:32 AM: COMPARISON: None Clinical Indication: Cough and wheezing. Findings: Single upright portable exam of the chest was performed. Heart size and mediastinal contours are within normal limits. Lungs are clear. No consolidation or pleural effusion. No pneumothorax. IMPRESSION: No acute radiographic abnormality. Electronically signed by: Kendrick Sharma MD (04/05/2021 2:32 AM) [facility] [place] DICTATED and SIGNED BY: KENDRICK SHARMA MD DATE: 04/05/21 [id number] 0 Course & Med Decision Making: Course & Med Decision Making Pertinent Labs and Imaging studies reviewed. (See chart for details) Patient is a 36-year-old female with a history of asthma, presented to ER due to trouble breathing. Patient was given DuoNeb treatment in the ER and IV steroids. Chest x-ray did not show any acute pneumonia. Patient was doing much better. Patient will be discharged home with albuterol inhaler and prednisone. Patient is amenable to plan of care Jose Manuel Disclaimer: Jose Manuel Disclaimer: This electronic medical record was generated, in whole or in part, using a voice recognition dictation system. Departure Departure Impression: Primary Impression: Asthma exacerbation Disposition: 01 HOME / SELF CARE / HOMELESS Condition: IMPROVED Referrals: NO PCP (PCP) Please follow up with [facility] this week. [address], [address] [place] [address] Phone number: [phone] Patient Instructions: Asthma Attacks, Prevention, Asthma, Adult Additional Instructions: Thank you for visiting our Emergency Department. We appreciate you trusting us with your care. If any additional problems come up don't hesitate to return to visit us. Please follow up with your primary care provider so they can plan additional care if needed and know about the problem that you had. If symptoms worsen come back to the Emergency Department. Any concerning symptoms that start such as chest pain, shortness of air, weakness or numbness on one side of the body, running high fevers or any other concerning symptoms return to the ER. Scripts Prednisone (PREDNISONE) 20 Mg Tablet 1 TAB PO DAILY for 10 Days, #10 TAB Prov: RASTA HEIN DO 04/05/21 Albuterol Sulfate (PROAIR HFA INHALER) 8.5 Gm Hfa.aer.ad 2 PUFF IH PRN Q4-6HRS PRN for wheezing for 21 Days, #1 INHALER 0 Refills Prov: RASTA HEIN DO 04/05/21 RASTA HEIN DO Apr 05, 2021 02:12
[2021-04-05] MEDS ORDERED: methylPREDNISolone SOD SUCC PF 125 MG/2 ML VIAL. IV ONE (02:15)
[2021-04-05] MEDS ORDERED: IPRATRPIUM/ALBUTEROL 0.5/2.5MG 3 ML NEBU. NEB ONE ×2 (02:15→04:00)
[2021-04-05 02:35] LABS: BASO # 0.2 x10^3/uL (0.0-0.2); BASO % 1 % (0-3); EOS # 1.1 x10^3/uL (0.0-0.7); EOS % 8 % (0-3); HEMATOCRIT 42.6 % (36.0-47.0); HEMOGLOBIN 14.8 g/dL (12.0-15.5); LYMPH # 3.2 x10^3/uL (1.0-4.8); LYMPH % 23 % (24-48); MEAN CORPUSCULAR HEMOGLOBIN 29 pg (25-35); MEAN CORPUSCULAR HGB CONC 35 g/dL (31-37); MEAN CORPUSCULAR VOLUME 82 fL (79-100); MONO # 0.8 x10^3/uL (0.0-1.1); MONO % 5 % (0-9); NEUT # 8.7 x10^3/uL (1.8-7.7); NEUT % 63 % (31-73); PLATELET COUNT 383 x10^3/uL (140-400); RED BLOOD COUNT 5.18 x10^6/uL (3.50-5.40); RED CELL DISTRIBUTION WIDTH 13.7 % (11.5-14.5); WHITE BLOOD COUNT 13.8 x10^3/uL (4.0-11.0)
--- NOTE | 2021-04-05 02:35 | RAD ---
Single view chest dated 04/05/2021 2:32 AM: COMPARISON: None Clinical Indication: Cough and wheezing. Findings: Single upright portable exam of the chest was performed. Heart size and mediastinal contours are with in normal limits. Lungs are clear. No consolidation or pleural effusion. No pneumothorax. IMPRESSION: No acute radiographic abnormality. Electronically signed by: Kendrick Sharma MD (04/05/2021 2:32 AM) MARIS[facility]EL
[2021-04-05 02:36] LABS: CALCIUM 8.8 mg/dL (8.5-10.1); CREATININE 0.8 mg/dL (0.6-1.0); GFR 80.3; POTASSIUM 3.2 mmol/L (3.5-5.1)
[2021-04-05 02:42] LABS: ALBUMIN 3.5 g/dL (3.4-5.0); ALBUMIN/GLOBULIN RATIO 0.9 (1.0-1.7); MAGNESIUM 2.1 mg/dL (1.8-2.4); TOTAL BILIRUBIN 0.4 mg/dL (0.2-1.0); TOTAL PROTEIN 7.2 g/dL (6.4-8.2)
[2021-04-05] MEDS ORDERED: POTASSIUM CHLORIDE 10 MEQ TABLET.ER. PO ONE (03:00)
[2021-04-05 03:38] LABS: % BASOS 3 % (0-3); % EOS 6 % (0-5); % LYMPHS 33 % (24-48); % MONOS 4 % (0-10); % SEGS 54 % (35-66); PLT ESTIMATE ADEQUATE (ADEQUATE)
[2021-04-05] MEDS ORDERED: ALBU2.5V8 IH (04:47)
[2021-04-05] MEDS ORDERED: PRED20TA PO (04:47)
[2021-04-05 05:00] VITALS: BP 100/58
--- NOTE | 2021-04-05 15:16 | NUR ---
IP: Attempted to notify patient of negative COVID19 test result. Voicemail message left to please return call at number provided.
--- NOTE | 2021-04-06 07:59 | NUR ---
IP: Second attempt to notify patient of negative COVID19 test result. Voicemail message to please return call at number provided.
== END 2021-04-05 05:16 | disposition home or self-care (01) ==
LOC: ER 02:02
DX: J45.901 Unspecified asthma with (acute) exacerbation (principal); Z20.822 Contact with and (suspected) exposure to COVID-19
CPT/HCPCS: 36415; 71045; 80053; 83735; 85007; 85025; 87426; 94640; 96374; 99285; J2930; U0003; U0005